=== PATIENT | female | born 1975 | race Caucasian/White ===

== ENCOUNTER 2018-01-07 18:33 | Inpatient (IN) | payer OTHER ==
[2018-01-07 22:24] VITALS: BMI 20.5
--- NOTE | 2018-01-07 23:54 | HP ---
CIWA Score Nausea/Vomitin-Mild Nausea/No Vomiting Muscle Tremors: 4-Moderate,w/Arms Extend Anxiety: 4-Mod. Anxious/Guarded Agitation: 4-Moderately Restless Paroxysmal Sweats: 3 Orientation: 3-Disoriented Date>2 days Tacttile Disturbances: 0-None Auditory Disturbances: 0-None Visual Disturbances: 0-None Headache: 3-Moderate CIWA-Ar Total Score: 22 - Admission Criteria OASAS Guidelines: Admission for Medically Managed Detox: Requires at least one of the followin. CIWA greater than 12 2. Seizures within the past 24 hours 3. Delirium tremens within the past 24 hours 4. Hallucinations within the past 24 hours 5. Acute intervention needed for co occurring medical disorder 6. Acute intervention needed for co occurring psychiatric disorder 7. Severe withdrawal that cannot be handled at a lower level of care (continued vomiting, continued diarrhea, abnormal vital signs) requiring intravenous medication and/or fluids 8. Patient presents the following: CIWA greater than 12 Admission Criteria Met: Admission criteria met Admission ROS [facility] Chief Complaint: c/o withdrawal sx's. seeking detox from alcoholism History of Present Illness: 43 Y.O FEMLAE WITH ALCOHOLISM AND OPIOID DEPENDENCE HERE FOR DETOX. CLIENT C/O WITHDRAWAL SX'S CIWA 22. SHE IS CURRENLTY ON METHADONE MAINTENANCE 100 MG AT [facility]. PENDING VERIFICATION. SHE WAS REFERRED BY [facility]. DENIES ANY SIGNIFICANT CLEAN TIME IN THE PAST YEAR. REPORTS HX/O WITHDRAwAl SX'S. LAST EPISODE 2 MONTHS AGO, [place], [facility] BUT PRESENTLY DENIES. DENIES SI/HI. LIVING WITH FAMILY. OPEN ACS CASE PMHX- SEIZURE D/O ,KIDNEY STONE, CIRRHOSIS, BULEMIA, ANOREXIA PSYCH- BIPOLAR, DEPRESSION, ANXIETY Exam Limitations: Intoxication (REPEAT SUYAPA .0269 FROM .411) - Ebola screening Have you traveled outside of the country in the last 21 days: No (N) Have you had contact with anyone from an Ebola affected area: No Do you have a fever: No - Review of Systems Constitutional: Chills, Loss of Appetite, Night Sweats EENT: reports: No Symptoms Reported Respiratory: reports: No Symptoms reported Cardiac: reports: No Symptoms Reported GI: reports: Constipated, Poor Appetite, Poor Fluid Intake : reports: No Symptoms Reported Musculoskeletal: reports: Back Pain, Joint Pain, Neck Pain Integumentary: reports: No Symptoms Reported Neuro: reports: Seizure Endocrine: reports: No Symptoms Reported Hematology: reports: No Symptoms Reported Psychiatric: reports: Agitated, Anxious, Depressed Other Systems: Reviewed and Negative Patient History - Patient Medical History Hx Anemia: No Hx Asthma: No Hx Chronic Obstructive Pulmonary Disease (COPD): No Hx Cancer: No Hx Cardiac Disorders: No Hx Congestive Heart Failure: No Hx Hypertension: No Hx Hypercholesterolemia: No Hx Pacemaker: No HX Cerebrovascular Accident: No Hx Seizures: Yes (WITHDRAWAL) Hx Dementia: No Hx Diabetes: No Hx Gastrointestinal Disorders: No Hx Liver Disease: Yes (CIRRHOSIS) Hx Genitourinary Disorders: No Hx Sexually Transmitted Disorders: No Hx Renal Disease (ESRD): Yes (RENAL CALCULI) Hx Thyroid Disease: No Hx Human Immunodeficiency Virus (HIV): No Hx Hepatitis C: No Hx Depression: Yes Hx Suicide Attempt: No Hx Bipolar Disorder: Yes Hx Schizophrenia: No Other Medical History: ANXIETY - Patient Surgical History Past Surgical History: Yes Other Surgical History: kIDNEY STONES REMOVAL Anesthesia Reaction: Yes - PPD History Previous Implant?: Yes Documented Results: Negative w/o proof Implanted On Prior [facility] Admission?: No PPD to be Administered?: Yes - Reproductive History Patient is a Female of Child Bearing Age (11 -55 yrs old): Yes Last Menstrual Period: 12/23/17 LMP comment: NL Patient : No ([facility]) - Smoking Cessation Smoking history: Current every day smoker Have you smoked in the past 12 months: Yes Aproximately how many cigarettes per day: 5 Cigars Per Day: 0 Hx Chewing Tobacco Use: No Initiated information on smoking cessation: Yes 'Breaking Loose' booklet given: 01/07/18 - Substance & Tx. History Hx Alcohol Use: Yes Hx Substance Use: Yes Substance Use Type: Alcohol, Prescribed (MTD) Hx Substance Use Treatment: Yes ([facility]) - Substances Abused Alcohol Route: Oral Frequency: Daily Amount used: 1/2 gall. Vodka Age of first use: 40 Date of Last Use: 01/06/18 Family Disease History - Family Disease History Family History: Denies Admission Physical Exam [facility] - Vital Signs Vital Signs: Vital Signs - 24 hr 01/07/18 22:21 Temperature 99.4 F Pulse Rate 101 H Respiratory 20 Rate Blood Pressure 116/81 - Physical General Appearance: Yes: Appropriately Dressed, Mild Distress, Alcohol on Breath , Intoxicated, Tremorous, Irritable, Sweating, Anxious HEENTM: Yes: EOMI, Normocephalic, Normal Voice, ROGERIO, Pharynx Normal, Other ( POOR DENTITION) Respiratory: Yes: Chest Non-Tender, Lungs Clear, Normal Breath Sounds, No Respiratory Distress, No Accessory Muscle Use Neck: Yes: No masses,lesions,Nodules, Supple, Trachea in good position Breast: Yes: Breast Exam Deferred Cardiology: Yes: Regular Rhythm, Regular Rate, S1, S2 Abdominal: Yes: Normal Bowel Sounds, Non Tender, Flat, Soft Genitourinary: Yes: Within Normal Limits (NO C/O) Back: Yes: Normal Inspection Musculoskeletal: Yes: full range of Motion, Gait Steady Extremities: Yes: Normal Capillary Refill, Normal Range of Motion, Non-Tender, Tremors Neurological: Yes: Alert, Motor Strength 5/5, Depressed Affect Integumentary: Yes: Warm, Moist Lymphatic: Yes: Within Normal Limits - Diagnostic (1) Alcohol dependence with uncomplicated withdrawal Current Visit: Yes Status: Acute (2) Alcohol withdrawal seizure Current Visit: Yes Status: Chronic Qualifiers: Complication of substance-induced condition: with unspecified complication Qualified Code(s): F10.239 - Alcohol dependence with withdrawal, unspecified; R56.9 - Unspecified convulsions (3) Renal calculi Current Visit: Yes Status: Chronic (4) Constipation Current Visit: Yes Status: Acute Qualifiers: Constipation type: drug induced constipation Qualified Code(s): K59.03 - Drug induced constipation (5) Methadone maintenance therapy patient Current Visit: Yes Status: Chronic (6) Bipolar 1 disorder Current Visit: Yes Status: Suspected (7) Depression Current Visit: Yes Status: Suspected (8) Anxiety Current Visit: Yes Status: Suspected (9) At risk for dehydration due to poor fluid intake Current Visit: Yes Status: Acute Cleared for Admission S - Detox or Rehab [facility] Level of Care: Medically Managed Detox Regimen/Protocol: Librium Claeared for Rehab Admission: No [facility] Breath Alcohol Content Breath Alcohol Content: 0.411 Urine Pregancy Test - Result Urine Test Results: Negative- NO Line Present Urine Drug Screen - Results Drug Screen Negative: No Urine Drug Screen Results: BZO-Benzodiazepines, MTD-Methadone
[2018-01-08] MEDS ORDERED: guaiFENesin/D-METHORPHAN HB 10 ML UNIT-DOSE CUPS PO PRN (00:06)
[2018-01-08] MEDS ORDERED: MAGNESIUM HYDROX 2400MG/30ML ORAL SUSPENSION 30 ML CUP PO PRN (00:06)
[2018-01-08] MEDS ORDERED: ACETAMINOPHEN 325 MG TABLET (FP) PO PRN (00:06)
[2018-01-08] MEDS ORDERED: MAGNESIUM CITRATE 300 ML BOTTLE PO PRN (00:06)
[2018-01-08] MEDS ORDERED: IBUPROFEN 400 MG TABLET (FP) PO PRN (00:06)
[2018-01-08] MEDS ORDERED: LOPERAMIDE HCL 2 MG CAPSULE PO PRN (00:06)
[2018-01-08] MEDS ORDERED: P-EPHED 60MG/TRIPROLIDI 2.5MG TABLET PO PRN (00:06)
[2018-01-08] MEDS ORDERED: MAG HYDROX/AL HYDROX/SIMETH 30 ML UNIT-DOSE CUP PO PRN (00:06)
[2018-01-08] MEDS ORDERED: MENTHOL/PHENOL 1 EACH UD MM PRN (00:06)
[2018-01-08] MEDS: chlordiazePOXIDE HCL 25 MG CAPSULE PO PRN ×2 (00:47→13:41)
[2018-01-08] MEDS ORDERED: hydrOXYzine PAMOATE 50 MG CAPSULE (FP) PO ONE (02:44)
[2018-01-08] MEDS: chlordiazePOXIDE HCL 25 MG CAPSULE PO SCH ×4 (05:27→22:32)
[2018-01-08] MEDS ORDERED: METHADONE HCL 10 MG TABLET PO SCH (09:30)
[2018-01-08] MEDS: PRENATAL VITAMINS W/ FOLIC ACID TABLET (FP) PO SCH (10:29)
[2018-01-08] MEDS ORDERED: METHADONE HCL 40 MG DISPERSABLE TABLET ONE (10:30)
[2018-01-08] MEDS ORDERED: METHADONE HCL 10 MG TABLET ONE (10:30)
[2018-01-08] MEDS: METHADONE 80 MG, METHADONE 20 MG PO SCH (10:31)
[2018-01-08] MEDS: NICOTINE POLACRILEX 2 MG GUM BC PRN ×2 (10:32→18:11)
[2018-01-08] MEDS: NICOTINE 14 MG/24 HOURS TOPICAL PATCH TD SCH (10:32)
[2018-01-08 10:53] LABS: HEMATOCRIT 38.9 % (32.4-45.2); HEMOGLOBIN 12.6 GM/dL (10.7-15.3); MCH 32.9 pg (25.7-33.7); MCHC 32.3 g/dl (32.0-36.0); MEAN CELL VOLUME 101.7 fl (80-96); PLATELET COUNT 167 K/MM3 (134-434); RBC 3.82 M/mm3 (3.60-5.2); RDW 13.9 % (11.6-15.6); WHITE BLOOD COUNT 4.1 K/mm3 (4.0-10.0)
[2018-01-08 11:03] LABS: ALBUMIN 3.6 g/dl (3.4-5.0); ALK PHOS 86 U/L (45-117); ANION GAP 9 MMOL/L (8-16); BILIRUBIN,TOTAL 1.2 mg/dL (0.2-1); BLOOD UREA NITROGEN 12 mg/dL (7-18); CALCIUM 8.6 mg/dL (8.5-10.1); CHLORIDE 100 mmol/L (98-107); CO2 26 mmol/L (21-32); CREATININE 0.5 mg/dL (0.55-1.3); GLUCOSE,RANDOM 90 mg/dL (74-106); POTASSIUM 3.6 mmol/L (3.5-5.1); SGOT/AST 35 U/L (15-37); SGPT/ALT 16 U/L (13-61); SODIUM 135 mmol/L (136-145); TOT PROT 6.7 g/dl (6.4-8.2)
[2018-01-08] MEDS ORDERED: PNEUMOC 13-VAL CONJ-DIP CRM/PF 0.5 ML DISP.SYRIN IM ONE (12:00)
[2018-01-08] MEDS ORDERED: PNEUMOCOCCAL 23 VACCINE 0.5 ML VIAL IM ONE (12:15)
--- NOTE | 2018-01-08 13:42 | PN ---
S CIWA - CIWA Score Nausea/Vomitin Muscle Tremors: 2 Anxiety: 2 Agitation: 2 Paroxysmal Sweats: 2 Orientation: 0-Oriented Tacttile Disturbances: 1-Very Mild Itch/Numbness Auditory Disturbances: 1-Very Mild Visual Disturbances: 1-Very Mild Sensitivity Headache: 2-Mild CIWA-Ar Total Score: 15 BHS Progress Note (SOAP) Subjective: Tremors, sweats, interrupted sleep Objective: 01/08/18 13:41 Vital Signs Period Temp Pulse Resp BP Sys/Askew Pulse Ox Last 24 Hr 98.2 F-99.4 F 66-121 0-20 91-122/56-85 Laboratory Last Values WBC 4.1 K/mm3 (4.0-10.0) 01/08/18 08:00 RBC 3.82 M/mm3 (3.60-5.2) 01/08/18 08:00 Hgb 12.6 GM/dL (10.7-15.3) 01/08/18 08:00 Hct 38.9 % (32.4-45.2) 01/08/18 08:00 MCV 101.7 fl (80-96) H 01/08/18 08:00 MCH 32.9 pg (25.7-33.7) 01/08/18 08:00 MCHC 32.3 g/dl (32.0-36.0) 01/08/18 08:00 RDW 13.9 % (11.6-15.6) 01/08/18 08:00 Plt Count 167 K/MM3 (134-434) 01/08/18 08:00 MPV 9.0 fl (7.5-11.1) 01/08/18 08:00 Sodium 135 mmol/L (136-145) L 01/08/18 08:00 Potassium 3.6 mmol/L (3.5-5.1) 01/08/18 08:00 Chloride 100 mmol/L (98-107) 01/08/18 08:00 Carbon Dioxide 26 mmol/L (21-32) 01/08/18 08:00 Anion Gap 9 MMOL/L (8-16) 01/08/18 08:00 BUN 12 mg/dL (7-18) 01/08/18 08:00 Creatinine 0.5 mg/dL (0.55-1.3) L 01/08/18 08:00 Creat Clearance w eGFR > 60 (>60) 01/08/18 08:00 Random Glucose 90 mg/dL (74-106) 01/08/18 08:00 Calcium 8.6 mg/dL (8.5-10.1) 01/08/18 08:00 Total Bilirubin 1.2 mg/dL (0.2-1) H 01/08/18 08:00 AST 35 U/L (15-37) 01/08/18 08:00 ALT 16 U/L (13-61) 01/08/18 08:00 Alkaline Phosphatase 86 U/L (45-117) 01/08/18 08:00 Total Protein 6.7 g/dl (6.4-8.2) 01/08/18 08:00 Albumin 3.6 g/dl (3.4-5.0) 01/08/18 08:00 RPR Titer Nonreactive (NONREACTIVE) 01/08/18 08:00 Labs noted Assessment: 01/08/18 13:42 Withdrawal sx Plan: Continue detox
--- NOTE | 2018-01-08 15:21 | EKG ---
Test Reason : Blood Pressure : / mmHG Vent. Rate : 118 BPM Atrial Rate : 118 BPM P-R Int : 148 ms QRS Dur : 072 ms QT Int : 328 ms P-R-T Axes : 069 058 063 degrees QTc Int : 459 ms POOR DATA QUALITY, INTERPRETATION MAY BE ADVERSELY AFFECTED SINUS TACHYCARDIA POSSIBLE LEFT ATRIAL ENLARGEMENT NO PREVIOUS ECGS AVAILABLE Confirmed by Dean Tracey ([id number]) on 01/08/2018 3:20:54 PM Referred By: Confirmed By:Dean Tracey
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
[2018-01-08] MEDS ORDERED: traZODone HCL 150 MG TABLET PO SCH (22:00)
[2018-01-08] MEDS ORDERED: MELATONIN 5 MG TABLETS PO PRN (22:00)
[2018-01-08] MEDS: traZODone HCL 100 MG TABLET (FP) PO SCH (22:32)
[2018-01-08] MEDS: THIAMINE HCL 100 MG TABLET (FP) PO SCH (22:32)
[2018-01-09] MEDS ORDERED: METHADONE HCL 40 MG DISPERSABLE TABLET ONE (04:15)
[2018-01-09] MEDS ORDERED: METHADONE HCL 10 MG TABLET ONE (04:16)
[2018-01-09] MEDS: METHADONE 80 MG, METHADONE 20 MG PO SCH (05:52)
[2018-01-09] MEDS: chlordiazePOXIDE HCL 25 MG CAPSULE PO SCH ×4 (05:52→22:31)
[2018-01-09] MEDS ORDERED: FLUoxetine HCL 10 MG CAPSULE (FP) PO SCH (10:00)
[2018-01-09] MEDS: PRENATAL VITAMINS W/ FOLIC ACID TABLET (FP) PO SCH (11:05)
[2018-01-09] MEDS: ESCITALOPRAM OXALATE 10 MG TABLET (FP) PO SCH (11:05)
[2018-01-09] MEDS: NICOTINE 14 MG/24 HOURS TOPICAL PATCH TD SCH (11:05)
[2018-01-09] MEDS: NICOTINE POLACRILEX 2 MG GUM BC PRN (11:06)
--- NOTE | 2018-01-09 12:25 | PN ---
[facility] CIWA - CIWA Score Nausea/Vomitin-Mild Nausea/No Vomiting Muscle Tremors: 3 Anxiety: 1-Mildly Anxious Agitation: 2 Paroxysmal Sweats: 1-Minimal Palms Moist Orientation: 0-Oriented Tacttile Disturbances: 1-Very Mild Itch/Numbness Auditory Disturbances: 1-Very Mild Visual Disturbances: 0-None Headache: 1-Very Mild CIWA-Ar Total Score: 11 S Progress Note (SOAP) Subjective: sweat tremor restlessness trouble sleep at night Objective: 01/09/18 12:32 Vital Signs Temperature 97.5 F L 01/09/18 10:22 Pulse Rate 73 01/09/18 10:22 Respiratory Rate 16 01/09/18 10:22 Blood Pressure 95/67 01/09/18 10:22 O2 Sat by Pulse Oximetry (%) Laboratory Last Values WBC 4.1 K/mm3 (4.0-10.0) 01/08/18 08:00 RBC 3.82 M/mm3 (3.60-5.2) 01/08/18 08:00 Hgb 12.6 GM/dL (10.7-15.3) 01/08/18 08:00 Hct 38.9 % (32.4-45.2) 01/08/18 08:00 MCV 101.7 fl (80-96) H 01/08/18 08:00 MCH 32.9 pg (25.7-33.7) 01/08/18 08:00 MCHC 32.3 g/dl (32.0-36.0) 01/08/18 08:00 RDW 13.9 % (11.6-15.6) 01/08/18 08:00 Plt Count 167 K/MM3 (134-434) 01/08/18 08:00 MPV 9.0 fl (7.5-11.1) 01/08/18 08:00 Sodium 135 mmol/L (136-145) L 01/08/18 08:00 Potassium 3.6 mmol/L (3.5-5.1) 01/08/18 08:00 Chloride 100 mmol/L (98-107) 01/08/18 08:00 Carbon Dioxide 26 mmol/L (21-32) 01/08/18 08:00 Anion Gap 9 MMOL/L (8-16) 01/08/18 08:00 BUN 12 mg/dL (7-18) 01/08/18 08:00 Creatinine 0.5 mg/dL (0.55-1.3) L 01/08/18 08:00 Creat Clearance w eGFR > 60 (>60) 01/08/18 08:00 Random Glucose 90 mg/dL (74-106) 01/08/18 08:00 Calcium 8.6 mg/dL (8.5-10.1) 01/08/18 08:00 Total Bilirubin 1.2 mg/dL (0.2-1) H 01/08/18 08:00 AST 35 U/L (15-37) 01/08/18 08:00 ALT 16 U/L (13-61) 01/08/18 08:00 Alkaline Phosphatase 86 U/L (45-117) 01/08/18 08:00 Total Protein 6.7 g/dl (6.4-8.2) 01/08/18 08:00 Albumin 3.6 g/dl (3.4-5.0) 01/08/18 08:00 RPR Titer Nonreactive (NONREACTIVE) 01/08/18 08:00 lab noted Assessment: 01/09/18 12:33 withdrawal sx Plan: continue detox
[2018-01-09] MEDS: THIAMINE HCL 100 MG TABLET (FP) PO SCH (22:30)
[2018-01-09] MEDS: traZODone HCL 100 MG TABLET (FP) PO SCH (22:31)
[2018-01-10] MEDS ORDERED: METHADONE HCL 10 MG TABLET ONE (04:55)
[2018-01-10] MEDS ORDERED: METHADONE HCL 40 MG DISPERSABLE TABLET ONE (04:55)
[2018-01-10] MEDS: chlordiazePOXIDE 5 MG CAPSULE PO SCH ×4 (06:10→22:22)
[2018-01-10] MEDS: METHADONE 80 MG, METHADONE 20 MG PO SCH (06:10)
--- NOTE | 2018-01-10 10:30 | PN ---
[facility] Progress Note (SOAP) Subjective: sweats chills mild shakes Objective: 01/10/18 10:35 Vital Signs Temperature 96.7 F L 01/10/18 09:31 Pulse Rate 72 01/10/18 09:31 Respiratory Rate 16 01/10/18 09:31 Blood Pressure 102/73 01/10/18 09:31 O2 Sat by Pulse Oximetry (%) aaox3 ambulating no acute distress Assessment: 01/10/18 10:35 mild withdrawal sx Plan: continue detox increase fluids d/c in am
[2018-01-10] MEDS: ESCITALOPRAM OXALATE 10 MG TABLET (FP) PO SCH (10:38)
[2018-01-10] MEDS: PRENATAL VITAMINS W/ FOLIC ACID TABLET (FP) PO SCH (10:38)
[2018-01-10] MEDS: NICOTINE 14 MG/24 HOURS TOPICAL PATCH TD SCH (10:38)
[2018-01-10 15:51] LABS: URINE APPEARANCE CLOUDY; URINE BILIRUBIN NEGATIVE (<2.0 mg/dL); URINE COLOR DKYELLOW; URINE GLUCOSE (UA) NEGATIVE (NEGATIVE); URINE KETONE NEGATIVE (NEGATIVE); URINE LEUK ESTERASE 2+ (NEGATIVE); URINE NITRITE POSITIVE (NEGATIVE); URINE PROTEIN NEGATIVE (NEGATIVE)
[2018-01-10 16:57] LABS: EPI CELLS MANY /HPF (FEW); URINE MUCUS RARE
[2018-01-10] MEDS: traZODone HCL 100 MG TABLET (FP) PO SCH (22:22)
[2018-01-10] MEDS: THIAMINE HCL 100 MG TABLET (FP) PO SCH (22:22)
[2018-01-11] MEDS ORDERED: METHADONE HCL 40 MG DISPERSABLE TABLET ONE (04:49)
[2018-01-11] MEDS ORDERED: METHADONE HCL 10 MG TABLET ONE (04:49)
[2018-01-11] MEDS ORDERED: chlordiazePOXIDE HCL 10 MG CAPSULE PO SCH (05:00)
[2018-01-11] MEDS: METHADONE 80 MG, METHADONE 20 MG PO SCH (05:56)
--- NOTE | 2018-01-11 08:47 | DS ---
[facility] Detox Discharge Summary Admission Date: 01/07/18 Discharge Date: 01/11/18 - History Present History: Alcohol Dependence, MMTP - Physical Exam Results Vital Signs: Vital Signs Temperature 97.9 F 01/11/18 07:32 Pulse Rate 73 01/11/18 07:32 Respiratory Rate 18 01/11/18 07:32 Blood Pressure 100/66 01/11/18 07:32 O2 Sat by Pulse Oximetry (%) - Treatment Hospital Course: Detox Protocol Followed, Detoxed Safely, Responded well, Discharged Condition Good, Rehab Referral Accepted - Medication Discharge Medications: Ambulatory Orders Fluoxetine HCl [Prozac] 10 mg PO DAILY 01/08/18 Trazodone HCl 150 mg PO HS 01/08/18 - Diagnosis (1) Alcohol dependence with uncomplicated withdrawal Current Visit: Yes Status: Chronic (2) At risk for dehydration due to poor fluid intake Current Visit: Yes Status: Acute (3) Constipation Current Visit: Yes Status: Acute Qualifiers: Constipation type: drug induced constipation Qualified Code(s): K59.03 - Drug induced constipation (4) Insomnia Current Visit: Yes Status: Acute (5) Nicotine dependence Current Visit: Yes Status: Acute Qualifiers: Nicotine product type: cigarettes Substance use status: uncomplicated Qualified Code(s): F17.210 - Nicotine dependence, cigarettes, uncomplicated (6) Opioid dependence on agonist therapy Current Visit: Yes Status: Acute (7) Substance induced mood disorder Current Visit: Yes Status: Acute (8) Alcohol withdrawal seizure Current Visit: Yes Status: Chronic Qualifiers: Complication of substance-induced condition: with unspecified complication Qualified Code(s): F10.239 - Alcohol dependence with withdrawal, unspecified; R56.9 - Unspecified convulsions (9) Methadone maintenance therapy patient Current Visit: Yes Status: Chronic (10) Renal calculi Current Visit: Yes Status: Chronic (11) Anxiety Current Visit: Yes Status: Suspected (12) Bipolar 1 disorder Current Visit: Yes Status: Suspected (13) Depression Current Visit: Yes Status: Suspected Qualifiers: Depression Type: major depressive disorder - AMA Did Patient Leave Against Medical Advice: No ([facility]
[2018-01-11] MEDS: NICOTINE POLACRILEX 2 MG GUM BC PRN (09:37)
[2018-01-11] MEDS: PRENATAL VITAMINS W/ FOLIC ACID TABLET (FP) PO SCH (09:37)
[2018-01-11] MEDS: NICOTINE 14 MG/24 HOURS TOPICAL PATCH TD SCH (09:37)
[2018-01-11] MEDS: ESCITALOPRAM OXALATE 10 MG TABLET (FP) PO SCH (09:37)
[2018-01-11 09:47] VITALS: BP 102/73; PULSE 111; TEMP 97.3
== END 2018-01-11 10:06 | disposition other institution (70) | DRG 773 ==
LOC: YASAS 18:33 → Y6N 21:09
PROC: HZ2ZZZZ Detoxification Services for Substance Abuse Treatment (ICD-10-PCS; principal; 2018-01-07)
DX: F10.230 Alcohol dependence with withdrawal, uncomplicated (principal); F11.20 Opioid dependence, uncomplicated; F17.210 Nicotine dependence, cigarettes, uncomplicated; F19.24 Other psychoactive substance dependence with psychoactive substance-induced mood disorder; F41.9 Anxiety disorder, unspecified; F31.89 Other bipolar disorder; G47.00 Insomnia, unspecified; G40.509 Epileptic seizures related to external causes, not intractable, without status epilepticus; K59.03 Drug induced constipation; N20.0 Calculus of kidney; K74.60 Unspecified cirrhosis of liver; Z91.89 Other specified personal risk factors, not elsewhere classified
CPT/HCPCS: 36415; 80053; 81003; 81015; 85027; 86593; 90732; 93005; 93010; G0009

== ENCOUNTER 2018-01-11 10:59 | Inpatient (IN) | payer OTHER ==
[2018-01-11 11:56] VITALS: BMI 21.5
[2018-01-11] MEDS ORDERED: MENTHOL/PHENOL 1 EACH UD MM PRN (13:53)
[2018-01-11] MEDS ORDERED: P-EPHED 60MG/TRIPROLIDI 2.5MG TABLET PO PRN (13:53)
[2018-01-11] MEDS ORDERED: MAGNESIUM HYDROX 2400MG/30ML ORAL SUSPENSION 30 ML CUP PO PRN (13:53)
[2018-01-11] MEDS ORDERED: ACETAMINOPHEN 325 MG TABLET (FP) PO PRN (13:53)
[2018-01-11] MEDS ORDERED: guaiFENesin/D-METHORPHAN HB 10 ML UNIT-DOSE CUPS PO PRN (13:53)
[2018-01-11] MEDS ORDERED: MAGNESIUM CITRATE 300 ML BOTTLE PO PRN (13:53)
[2018-01-11] MEDS ORDERED: LOPERAMIDE HCL 2 MG CAPSULE PO PRN (13:53)
[2018-01-11] MEDS ORDERED: IBUPROFEN 400 MG TABLET (FP) PO PRN (13:53)
--- NOTE | 2018-01-11 13:53 | HP ---
[facility] Rehab Assess/Revision - Admission History Admitted to Rehab from: [facility] [address] [place] - Vital signs Vital Signs: Vital Signs Period Temp Pulse Resp BP Sys/Askew Pulse Ox Last 24 Hr 97.7 F-97.7 F 92-92 16-16 114-114/80-80 - Findings Detox History & Physical reviewed: Yes Concur with findings: Yes Inpatient Rehab Admission - Initial Determination Are CD services needed?: Yes Free of communicable disease: Yes Not in need of hospitalization: Yes - Rehab Admission Criteria Previous failed treatment: Yes Poor recovery environment: Yes Lacks judgement: Yes
--- NOTE | 2018-01-11 15:28 | PN ---
[facility] Progress Note Note: Psychiatry Attending's note (coverage) : Patient is now at [address] Nurse called for medications orders. Case already known to communications writer. Medications reconciled as : lexapro 10 mg po daily Trazodone 150 mg po hs. Ordered. Continuity of care.
[2018-01-11] MEDS: hydrOXYzine PAMOATE 50 MG CAPSULE (FP) PO PRN (19:31)
[2018-01-11] MEDS: THIAMINE HCL 100 MG TABLET (FP) PO SCH (21:49)
[2018-01-11] MEDS: cloNIDine HCL 0.1 MG TABLET PO PRN (21:49)
[2018-01-11] MEDS: traZODone HCL 50 MG TABLET (FP) PO SCH (21:50)
[2018-01-11] MEDS ORDERED: MELATONIN 5 MG TABLETS PO PRN (22:00)
[2018-01-12] MEDS ORDERED: METHADONE HCL 10 MG TABLET PO SCH (06:00)
[2018-01-12] MEDS ORDERED: METHADONE HCL 10 MG TABLET ONE (06:24)
[2018-01-12] MEDS ORDERED: METHADONE HCL 40 MG DISPERSABLE TABLET ONE (06:25)
[2018-01-12] MEDS: METHADONE 80 MG, METHADONE 20 MG PO SCH (06:33)
[2018-01-12] MEDS: PRENATAL VITAMINS W/ FOLIC ACID TABLET (FP) PO SCH (09:32)
[2018-01-12] MEDS: ESCITALOPRAM OXALATE 10 MG TABLET (FP) PO SCH (09:32)
[2018-01-12] MEDS: hydrOXYzine PAMOATE 50 MG CAPSULE (FP) PO PRN ×2 (09:33→21:55)
[2018-01-12] MEDS: THIAMINE HCL 100 MG TABLET (FP) PO SCH (21:55)
[2018-01-12] MEDS: traZODone HCL 50 MG TABLET (FP) PO SCH (21:55)
[2018-01-13] MEDS ORDERED: METHADONE HCL 10 MG TABLET ONE (06:00)
[2018-01-13] MEDS ORDERED: METHADONE HCL 40 MG DISPERSABLE TABLET ONE (06:01)
[2018-01-13] MEDS: METHADONE 80 MG, METHADONE 20 MG PO SCH (06:34)
[2018-01-13] MEDS: hydrOXYzine PAMOATE 50 MG CAPSULE (FP) PO PRN ×3 (06:34→21:41)
[2018-01-13] MEDS: MAG HYDROX/AL HYDROX/SIMETH 30 ML UNIT-DOSE CUP PO PRN (07:46)
[2018-01-13] MEDS: ESCITALOPRAM OXALATE 10 MG TABLET (FP) PO SCH (10:53)
[2018-01-13] MEDS: PRENATAL VITAMINS W/ FOLIC ACID TABLET (FP) PO SCH (10:53)
[2018-01-13] MEDS: traZODone HCL 50 MG TABLET (FP) PO SCH (21:41)
[2018-01-13] MEDS: THIAMINE HCL 100 MG TABLET (FP) PO SCH (21:41)
[2018-01-14] MEDS ORDERED: METHADONE HCL 40 MG DISPERSABLE TABLET ONE (03:31)
[2018-01-14] MEDS ORDERED: METHADONE HCL 10 MG TABLET ONE (03:31)
[2018-01-14] MEDS: METHADONE 80 MG, METHADONE 20 MG PO SCH (06:29)
[2018-01-14] MEDS: hydrOXYzine PAMOATE 50 MG CAPSULE (FP) PO PRN ×2 (06:31→21:39)
[2018-01-14] MEDS: ESCITALOPRAM OXALATE 10 MG TABLET (FP) PO SCH (10:05)
[2018-01-14] MEDS: PRENATAL VITAMINS W/ FOLIC ACID TABLET (FP) PO SCH (10:05)
[2018-01-14] MEDS: MAG HYDROX/AL HYDROX/SIMETH 30 ML UNIT-DOSE CUP PO PRN (10:05)
--- NOTE | 2018-01-14 16:09 | PN ---
[facility] Progress Note (SOAP) Subjective: c/o heart burn. States has had acid reflux in the past. States regular BM's w/o blood. Also c/o chronic back pain and requesting a lidocaine patch. pain is achy and goes from 5-10 depending on activities. Objective: A&O x 3. Lungs CTA. Able to bend at waist past 90 degrees. No abnormal protrusions felt on spinal area. Abd w/ Mid and LUQ tenderness deep paplation. No guarding/ No rebound tenderness. Soft, BS(+). Vital Signs - 24 hr 01/14/18 01/14/18 01/14/18 00:30 03:30 07:38 Temperature 98.2 F Pulse Rate 86 Respiratory 16 16 16 Rate Blood Pressure 91/65 Assessment: Alcohol remission. Methadone maintenance. Chronic low back pain Acid reflux Plan: Protonix Lidocaine patch. Encourage increased water/tea.
[2018-01-14] MEDS: PANTOPRAZOLE 20 MG TABLET (FP) PO SCH (17:23)
[2018-01-14] MEDS: LIDOCAINE 5% TOPICAL PATCH TP SCH (17:23)
[2018-01-14] MEDS: traZODone HCL 50 MG TABLET (FP) PO SCH (21:37)
[2018-01-14] MEDS: THIAMINE HCL 100 MG TABLET (FP) PO SCH (21:38)
[2018-01-14] MEDS: LIDOCAINE PATCH REMOVAL MC SCH (21:38)
[2018-01-15] MEDS ORDERED: METHADONE HCL 10 MG TABLET ONE (05:57)
[2018-01-15] MEDS ORDERED: METHADONE HCL 40 MG DISPERSABLE TABLET ONE (05:57)
[2018-01-15] MEDS: METHADONE 80 MG, METHADONE 20 MG PO SCH (06:24)
[2018-01-15] MEDS: hydrOXYzine PAMOATE 50 MG CAPSULE (FP) PO PRN ×3 (06:26→21:39)
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
[2018-01-15] MEDS: PRENATAL VITAMINS W/ FOLIC ACID TABLET (FP) PO SCH (10:40)
[2018-01-15] MEDS: LIDOCAINE 5% TOPICAL PATCH TP SCH (10:40)
[2018-01-15] MEDS: PANTOPRAZOLE 20 MG TABLET (FP) PO SCH (10:41)
[2018-01-15] MEDS: ESCITALOPRAM OXALATE 10 MG TABLET (FP) PO SCH (10:41)
[2018-01-15] MEDS: traZODone HCL 50 MG TABLET (FP) PO SCH (21:39)
[2018-01-15] MEDS: LIDOCAINE PATCH REMOVAL MC SCH (21:40)
[2018-01-15] MEDS: THIAMINE HCL 100 MG TABLET (FP) PO SCH (21:41)
[2018-01-16] MEDS ORDERED: METHADONE HCL 10 MG TABLET ONE (05:52)
[2018-01-16] MEDS ORDERED: METHADONE HCL 40 MG DISPERSABLE TABLET ONE (05:52)
[2018-01-16] MEDS: METHADONE 80 MG, METHADONE 20 MG PO SCH (06:34)
[2018-01-16] MEDS: hydrOXYzine PAMOATE 50 MG CAPSULE (FP) PO PRN ×3 (06:34→21:36)
[2018-01-16] MEDS: LIDOCAINE 5% TOPICAL PATCH TP SCH (10:27)
[2018-01-16] MEDS: PRENATAL VITAMINS W/ FOLIC ACID TABLET (FP) PO SCH (10:30)
[2018-01-16] MEDS: PANTOPRAZOLE 20 MG TABLET (FP) PO SCH (10:30)
[2018-01-16] MEDS: cloNIDine HCL 0.1 MG TABLET PO PRN ×2 (10:30→21:40)
[2018-01-16] MEDS: ESCITALOPRAM OXALATE 10 MG TABLET (FP) PO SCH (10:30)
[2018-01-16] MEDS: THIAMINE HCL 100 MG TABLET (FP) PO SCH (21:35)
[2018-01-16] MEDS: traZODone HCL 50 MG TABLET (FP) PO SCH (21:36)
[2018-01-16] MEDS: LIDOCAINE PATCH REMOVAL MC SCH (22:30)
[2018-01-17] MEDS ORDERED: METHADONE HCL 10 MG TABLET ONE (03:13)
[2018-01-17] MEDS ORDERED: METHADONE HCL 40 MG DISPERSABLE TABLET ONE (03:14)
[2018-01-17] MEDS: METHADONE 80 MG, METHADONE 20 MG PO SCH (06:17)
[2018-01-17] MEDS: hydrOXYzine PAMOATE 50 MG CAPSULE (FP) PO PRN ×4 (06:18→21:41)
[2018-01-17] MEDS ORDERED: PT OWN MED DRAWER 7, Y5N ONE (09:03)
[2018-01-17] MEDS: ESCITALOPRAM OXALATE 10 MG TABLET (FP) PO SCH (10:43)
[2018-01-17] MEDS: PANTOPRAZOLE 20 MG TABLET (FP) PO SCH (10:43)
[2018-01-17] MEDS: PRENATAL VITAMINS W/ FOLIC ACID TABLET (FP) PO SCH (10:43)
[2018-01-17] MEDS: LIDOCAINE 5% TOPICAL PATCH TP SCH (10:43)
[2018-01-17] MEDS ORDERED: IBUPROFEN 600 MG TABLET (FP) PO PRN (13:40)
[2018-01-17] MEDS: CYCLOBENZAPRINE HCL 10 MG TABLET (FP) PO PRN ×2 (15:49→21:41)
[2018-01-17] MEDS: THIAMINE HCL 100 MG TABLET (FP) PO SCH (21:40)
[2018-01-17] MEDS: cloNIDine HCL 0.1 MG TABLET PO PRN (21:40)
[2018-01-17] MEDS: traZODone HCL 50 MG TABLET (FP) PO SCH (21:41)
[2018-01-17] MEDS: LIDOCAINE PATCH REMOVAL MC SCH (21:42)
[2018-01-18] MEDS ORDERED: METHADONE HCL 10 MG TABLET ONE (03:28)
[2018-01-18] MEDS ORDERED: METHADONE HCL 40 MG DISPERSABLE TABLET ONE (03:28)
[2018-01-18] MEDS: METHADONE 80 MG, METHADONE 20 MG PO SCH (06:43)
[2018-01-18] MEDS: PANTOPRAZOLE 20 MG TABLET (FP) PO SCH (10:54)
[2018-01-18] MEDS: ESCITALOPRAM OXALATE 10 MG TABLET (FP) PO SCH (10:54)
[2018-01-18] MEDS: PRENATAL VITAMINS W/ FOLIC ACID TABLET (FP) PO SCH (10:54)
[2018-01-18] MEDS: LIDOCAINE 5% TOPICAL PATCH TP SCH (10:54)
[2018-01-18] MEDS: hydrOXYzine PAMOATE 50 MG CAPSULE (FP) PO PRN ×3 (10:55→22:29)
[2018-01-18] MEDS: CYCLOBENZAPRINE HCL 10 MG TABLET (FP) PO PRN (10:59)
[2018-01-18] MEDS: CYCLOBENZAPRINE HCL 10 MG TABLET (FP) PO SCH ×2 (14:25→22:29)
[2018-01-18] MEDS: traZODone HCL 50 MG TABLET (FP) PO SCH (22:29)
[2018-01-18] MEDS: THIAMINE HCL 100 MG TABLET (FP) PO SCH (22:29)
[2018-01-18] MEDS: LIDOCAINE PATCH REMOVAL MC SCH (22:29)
[2018-01-19] MEDS ORDERED: METHADONE HCL 10 MG TABLET ONE (05:59)
[2018-01-19] MEDS ORDERED: METHADONE HCL 40 MG DISPERSABLE TABLET ONE (06:00)
[2018-01-19] MEDS: METHADONE 80 MG, METHADONE 20 MG PO SCH (06:35)
[2018-01-19] MEDS: hydrOXYzine PAMOATE 50 MG CAPSULE (FP) PO PRN ×3 (06:37→21:30)
[2018-01-19] MEDS: CYCLOBENZAPRINE HCL 10 MG TABLET (FP) PO SCH ×3 (06:37→21:30)
[2018-01-19] MEDS: LIDOCAINE 5% TOPICAL PATCH TP SCH (10:27)
[2018-01-19] MEDS: PANTOPRAZOLE 20 MG TABLET (FP) PO SCH (10:27)
[2018-01-19] MEDS: ESCITALOPRAM OXALATE 10 MG TABLET (FP) PO SCH (10:27)
[2018-01-19] MEDS: PRENATAL VITAMINS W/ FOLIC ACID TABLET (FP) PO SCH (10:27)
[2018-01-19] MEDS: cloNIDine HCL 0.1 MG TABLET PO PRN ×2 (10:28→21:30)
[2018-01-19] MEDS: THIAMINE HCL 100 MG TABLET (FP) PO SCH (21:30)
[2018-01-19] MEDS: traZODone HCL 50 MG TABLET (FP) PO SCH (21:30)
[2018-01-19] MEDS: LIDOCAINE PATCH REMOVAL MC SCH (21:32)
[2018-01-20] MEDS ORDERED: METHADONE HCL 40 MG DISPERSABLE TABLET ONE (03:47)
[2018-01-20] MEDS ORDERED: METHADONE HCL 10 MG TABLET ONE (03:47)
[2018-01-20] MEDS: METHADONE 80 MG, METHADONE 20 MG PO SCH (06:22)
[2018-01-20] MEDS: hydrOXYzine PAMOATE 50 MG CAPSULE (FP) PO PRN (06:23)
[2018-01-20] MEDS: CYCLOBENZAPRINE HCL 10 MG TABLET (FP) PO SCH ×3 (06:23→21:45)
[2018-01-20] MEDS: LIDOCAINE 5% TOPICAL PATCH TP SCH (09:36)
[2018-01-20] MEDS: cloNIDine HCL 0.1 MG TABLET PO PRN (09:36)
[2018-01-20] MEDS: PRENATAL VITAMINS W/ FOLIC ACID TABLET (FP) PO SCH (09:36)
[2018-01-20] MEDS: PANTOPRAZOLE 20 MG TABLET (FP) PO SCH (09:36)
[2018-01-20] MEDS: ESCITALOPRAM OXALATE 10 MG TABLET (FP) PO SCH (09:36)
[2018-01-20] MEDS: traZODone HCL 50 MG TABLET (FP) PO SCH (21:44)
[2018-01-20] MEDS: THIAMINE HCL 100 MG TABLET (FP) PO SCH (21:44)
[2018-01-20] MEDS: LIDOCAINE PATCH REMOVAL MC SCH (21:45)
[2018-01-21] MEDS ORDERED: METHADONE HCL 40 MG DISPERSABLE TABLET ONE (05:52)
[2018-01-21] MEDS ORDERED: METHADONE HCL 10 MG TABLET ONE (05:52)
[2018-01-21] MEDS: hydrOXYzine PAMOATE 50 MG CAPSULE (FP) PO PRN ×3 (06:05→21:24)
[2018-01-21] MEDS: METHADONE 80 MG, METHADONE 20 MG PO SCH (06:05)
[2018-01-21] MEDS: CYCLOBENZAPRINE HCL 10 MG TABLET (FP) PO SCH ×3 (06:06→21:24)
[2018-01-21] MEDS: PANTOPRAZOLE 20 MG TABLET (FP) PO SCH (10:46)
[2018-01-21] MEDS: ESCITALOPRAM OXALATE 10 MG TABLET (FP) PO SCH (10:46)
[2018-01-21] MEDS: LIDOCAINE 5% TOPICAL PATCH TP SCH (10:46)
[2018-01-21] MEDS: PRENATAL VITAMINS W/ FOLIC ACID TABLET (FP) PO SCH (10:46)
[2018-01-21] MEDS: cloNIDine HCL 0.1 MG TABLET PO PRN (19:33)
[2018-01-21] MEDS: THIAMINE HCL 100 MG TABLET (FP) PO SCH (21:24)
[2018-01-21] MEDS: traZODone HCL 50 MG TABLET (FP) PO SCH (21:24)
[2018-01-21] MEDS: NICOTINE POLACRILEX 2 MG GUM BUC PRN (21:25)
[2018-01-21] MEDS: LIDOCAINE PATCH REMOVAL MC SCH (21:25)
[2018-01-22] MEDS ORDERED: METHADONE HCL 40 MG DISPERSABLE TABLET ONE (03:02)
[2018-01-22] MEDS ORDERED: METHADONE HCL 10 MG TABLET ONE (03:02)
[2018-01-22] MEDS: CYCLOBENZAPRINE HCL 10 MG TABLET (FP) PO SCH ×3 (06:30→21:36)
[2018-01-22] MEDS: METHADONE 80 MG, METHADONE 20 MG PO SCH (06:30)
[2018-01-22] MEDS: cloNIDine HCL 0.1 MG TABLET PO PRN ×2 (07:47→21:38)
[2018-01-22] MEDS: hydrOXYzine PAMOATE 50 MG CAPSULE (FP) PO PRN (10:48)
[2018-01-22] MEDS: ESCITALOPRAM OXALATE 10 MG TABLET (FP) PO SCH (10:48)
[2018-01-22] MEDS: PANTOPRAZOLE 20 MG TABLET (FP) PO SCH (10:48)
[2018-01-22] MEDS: PRENATAL VITAMINS W/ FOLIC ACID TABLET (FP) PO SCH (10:48)
[2018-01-22] MEDS: LIDOCAINE 5% TOPICAL PATCH TP SCH (10:48)
[2018-01-22] MEDS: traZODone HCL 50 MG TABLET (FP) PO SCH (21:36)
[2018-01-22] MEDS: THIAMINE HCL 100 MG TABLET (FP) PO SCH (21:36)
[2018-01-22] MEDS: LIDOCAINE PATCH REMOVAL MC SCH (21:37)
[2018-01-22] MEDS: NICOTINE POLACRILEX 2 MG GUM BUC PRN (21:46)
[2018-01-23] MEDS ORDERED: METHADONE HCL 10 MG TABLET ONE (03:19)
[2018-01-23] MEDS ORDERED: METHADONE HCL 40 MG DISPERSABLE TABLET ONE (03:20)
[2018-01-23] MEDS: METHADONE 80 MG, METHADONE 20 MG PO SCH (06:18)
[2018-01-23] MEDS: hydrOXYzine PAMOATE 50 MG CAPSULE (FP) PO PRN (06:19)
[2018-01-23] MEDS: CYCLOBENZAPRINE HCL 10 MG TABLET (FP) PO SCH ×3 (06:19→21:36)
[2018-01-23] MEDS: NICOTINE POLACRILEX 2 MG GUM BUC PRN ×3 (06:21→12:54)
[2018-01-23] MEDS: PRENATAL VITAMINS W/ FOLIC ACID TABLET (FP) PO SCH (10:05)
[2018-01-23] MEDS: PANTOPRAZOLE 20 MG TABLET (FP) PO SCH (10:05)
[2018-01-23] MEDS: ESCITALOPRAM OXALATE 10 MG TABLET (FP) PO SCH (10:05)
[2018-01-23] MEDS: LIDOCAINE 5% TOPICAL PATCH TP SCH (10:05)
[2018-01-23] MEDS: cloNIDine HCL 0.1 MG TABLET PO PRN ×2 (12:53→21:36)
[2018-01-23] MEDS: traZODone HCL 50 MG TABLET (FP) PO SCH (21:36)
[2018-01-23] MEDS: LIDOCAINE PATCH REMOVAL MC SCH (21:36)
[2018-01-23] MEDS: THIAMINE HCL 100 MG TABLET (FP) PO SCH (21:36)
[2018-01-24] MEDS ORDERED: METHADONE HCL 10 MG TABLET ONE (03:10)
[2018-01-24] MEDS ORDERED: METHADONE HCL 40 MG DISPERSABLE TABLET ONE (03:11)
[2018-01-24] MEDS: CYCLOBENZAPRINE HCL 10 MG TABLET (FP) PO SCH ×3 (06:14→21:56)
[2018-01-24] MEDS: METHADONE 80 MG, METHADONE 20 MG PO SCH (06:14)
[2018-01-24] MEDS: hydrOXYzine PAMOATE 50 MG CAPSULE (FP) PO PRN ×2 (06:16→14:10)
[2018-01-24] MEDS: NICOTINE POLACRILEX 2 MG GUM BUC PRN (06:16)
[2018-01-24] MEDS: ESCITALOPRAM OXALATE 10 MG TABLET (FP) PO SCH (10:19)
[2018-01-24] MEDS: cloNIDine HCL 0.1 MG TABLET PO PRN ×2 (10:19→21:57)
[2018-01-24] MEDS: PANTOPRAZOLE 20 MG TABLET (FP) PO SCH (10:19)
[2018-01-24] MEDS: LIDOCAINE 5% TOPICAL PATCH TP SCH (10:19)
[2018-01-24] MEDS: PRENATAL VITAMINS W/ FOLIC ACID TABLET (FP) PO SCH (10:19)
[2018-01-24] MEDS ORDERED: COLLOIDAL OATMEAL 1 BAR EACH TP PRN (11:46)
--- NOTE | 2018-01-24 13:41 | PN ---
S Progress Note Note: PATIENT C/O DRY SKIN AND ITCHING TO BACK AREA. STATES SHE HAD RASH LAST NIGHT. PE: SKIN WARM AND DRY AND INTACT. MILD RASH TO FACIAL CHEEKS. NO OPEN AREAS. WILL ORDER AVEENO SOAP AND EUCERIN CREAM. CONTINUE TO MONITOR. Vital Signs Temperature 97.8 F 01/24/18 07:18 Pulse Rate 86 01/24/18 09:31 Respiratory Rate 16 01/24/18 07:18 Blood Pressure 107/77 01/24/18 09:31 O2 Sat by Pulse Oximetry (%)
--- NOTE | 2018-01-24 15:38 | PN ---
Psychiatric Progress Note Vital Signs: Vital Signs Period Temp Pulse Resp BP Sys/Askew Pulse Ox Last 24 Hr 97.8 F 84-89 16-16 107-136/77-87 Date of Session: 01/24/18 Chief Complaint:: Discharge oeders HPI: Patient discharge from rehabilitation program, with successful complition on: Trazodone 150mg po qhs. Lexapro 10mg poqd. [id number] PO TID Current Medications: Active Medications Generic Name Dose Route Start Last Admin Trade Name Freq PRN Reason Stop Dose Admin Acetaminophen 650 mg 01/11/18 13:53 01/18/18 10:55 Tylenol - PO 650 mg Q4H PRN Administration FEVER Al Hydroxide/Mg Hydroxide 30 ml 01/11/18 13:53 01/14/18 10:05 Mylanta Oral Suspension - PO 30 ml Q6H PRN Administration DYSPEPSIA Clonidine 0.1 mg 01/11/18 15:54 01/24/18 10:19 Catapres - PO 0.1 mg BID PRN Administration WITHDRAWAL(CONT SUBST) Colloidal Oatmeal 1 applic 01/24/18 11:46 Aveeno Soap - TP DAILY PRN HYGEINE Cyclobenzaprine HCl 10 mg 01/18/18 14:00 01/24/18 14:10 Flexeril - PO 10 mg TID KAYLA Administration Escitalopram Oxalate 10 mg 01/12/18 10:00 01/24/18 10:19 Lexapro - PO 10 mg DAILY KAYLA Administration Eucalyptus/Menthol/Phenol/Sorbitol 1 each 01/11/18 13:53 Cepastat Lozenge - MM Q4H PRN SORE THROAT Guaifenesin 10 ml 01/11/18 13:53 Robitussin Dm - PO Q6H PRN COUGH Hydroxyzine Pamoate 50 mg 01/11/18 13:53 01/24/18 14:10 Vistaril - PO 50 mg Q4H PRN Administration AGITATION Ibuprofen 600 mg 01/17/18 13:40 Motrin - PO Q6H PRN Pain Level 4-6 Lidocaine 1 patch 01/14/18 16:30 01/24/18 10:19 Lidoderm Patch - TP 1 patch DAILY KAYLA Administration Loperamide HCl 4 mg 01/11/18 13:53 Imodium - PO Q6H PRN DIARRHEA Magnesium Citrate 300 ml 01/11/18 13:53 Citroma - PO Q48H PRN CONSTIPATION Magnesium Hydroxide 30 ml 01/11/18 13:53 Milk Of Magnesia - PO DAILY PRN CONSTIPATION Melatonin 5 mg 01/11/18 22:00 01/15/18 21:40 Melatonin PO 5 mg HS PRN Administration INSOMNIA Methadone HCl 80 mg/ Methadone 100 mg 01/19/18 06:00 01/24/18 06:14 HCl 20 mg PO 100 mg DAILY@0600 [facility] Administration Miscellaneous 1 each 01/14/18 22:00 01/23/18 21:36 Lidoderm Patch Removal MC 1 each DAILY@2200 [facility] Administration Multi-Ingredient Lotion 1 applic 01/24/18 22:00 Eucerin (Small Jar) - TP BID KAYLA Nicotine Polacrilex 2 mg 01/19/18 12:19 01/24/18 06:16 Nicorette Gum - BUC 2 mg Q2H PRN Administration NICOTINE REPLACEMENT RX Pantoprazole Sodium 20 mg 01/14/18 16:30 01/24/18 10:19 Protonix - PO 20 mg DAILY KAYLA Administration Multivit/Folic Acid/Iron 1 tab 01/12/18 10:00 01/24/18 10:19 Vitamins (Sjr) - PO 1 tab DAILY KAYLA Administration Pseudoephedrine/Triprolidine 1 combo 01/11/18 13:53 Actifed - PO TID PRN NASAL CONGESTION Thiamine HCl 100 mg 01/11/18 22:00 01/23/18 21:36 Vitamin B1 - PO 100 mg HS KAYLA Administration Trazodone HCl 150 mg 01/11/18 22:00 01/23/18 21:36 Desyrel - PO 150 mg HS KAYLA Administration Medication(s) Change(s): NONE Mental Status Exam - Mental Status Exam Alert and Oriented to: Time, Place, Person Patient Appearance: Well Groomed Mood: Euthymic Affect: Mood Congruent Patient Behavior: Cooperative Speech Pattern: Appropriate Voice Loudness: Normal Thought Process: Goal Oriented Thought Disorder: Being Controlled Hallucinations: Denies Suicidal Ideation: Denies Homicidal Ideation: Denies Insight/Judgement: Fair Sleep: Difficulty falling asleep Appetite: Fair Muscle strength/Tone: Normal Gait/Station: Normal Additional Comments: Trazodone 150mg po qhs. Lexapro 10mg poqd. [id number] PO TID Psychiatric Treatment Plan - Problem List (1) Alcohol dependence Current Visit: Yes (2) Alcohol use disorder, moderate, in early remission Current Visit: Yes (3) Nicotine dependence Current Visit: Yes Qualifiers: Nicotine product type: cigarettes Substance use status: uncomplicated Qualified Code(s): F17.210 - Nicotine dependence, cigarettes, uncomplicated (4) Opioid dependence on agonist therapy Current Visit: Yes (5) Substance induced mood disorder Current Visit: Yes (6) Acid reflux Current Visit: Yes Qualifiers: Esophagitis presence: esophagitis presence not specified Qualified Code(s) : K21.9 - Gastro-esophageal reflux disease without esophagitis (7) Alcohol dependence with uncomplicated withdrawal Current Visit: No (8) Methadone maintenance therapy patient Current Visit: No (9) Bipolar 1 disorder Current Visit: No Initial treatment plan: DISCHARGE HOME ON: Trazodone 150mg po qhs. Lexapro 10mg poqd. [id number] PO TID
[2018-01-24] MEDS: THIAMINE HCL 100 MG TABLET (FP) PO SCH (21:56)
[2018-01-24] MEDS: traZODone HCL 50 MG TABLET (FP) PO SCH (21:56)
[2018-01-24] MEDS: MINERAL OIL/PETROLAT/WATER TOPICAL CREAM 113 GM JAR TP SCH (21:57)
[2018-01-24] MEDS: LIDOCAINE PATCH REMOVAL MC SCH (21:58)
[2018-01-25] MEDS ORDERED: METHADONE HCL 10 MG TABLET ONE (06:05)
[2018-01-25] MEDS ORDERED: METHADONE HCL 40 MG DISPERSABLE TABLET ONE (06:05)
[2018-01-25] MEDS: METHADONE 80 MG, METHADONE 20 MG PO SCH (06:07)
[2018-01-25] MEDS: CYCLOBENZAPRINE HCL 10 MG TABLET (FP) PO SCH (06:08)
[2018-01-25] MEDS: hydrOXYzine PAMOATE 50 MG CAPSULE (FP) PO PRN (06:09)
[2018-01-25 07:06] VITALS: BP 101/58; PULSE 61; TEMP 98.2
[2018-01-25] MEDS: MINERAL OIL/PETROLAT/WATER TOPICAL CREAM 113 GM JAR TP SCH (09:12)
[2018-01-25] MEDS: LIDOCAINE 5% TOPICAL PATCH TP SCH (09:12)
[2018-01-25] MEDS: PANTOPRAZOLE 20 MG TABLET (FP) PO SCH (09:12)
[2018-01-25] MEDS: ESCITALOPRAM OXALATE 10 MG TABLET (FP) PO SCH (09:12)
[2018-01-25] MEDS: PRENATAL VITAMINS W/ FOLIC ACID TABLET (FP) PO SCH (09:12)
[2018-01-25] MEDS: NICOTINE POLACRILEX 2 MG GUM BUC PRN (09:13)
== END 2018-01-25 10:30 | disposition home or self-care (01) | DRG 772 ==
LOC: YASAS 10:59 → Y3E 11:03
PROVIDERS: ADMIT Psychiatry & Neurology Psychiatry; ATTEND Psychiatry & Neurology Psychiatry
PROC: HZ42ZZZ Group Counseling for Substance Abuse Treatment, Cognitive-Behavioral (ICD-10-PCS; principal; 2018-01-11)
DX: F10.20 Alcohol dependence, uncomplicated (principal); F11.20 Opioid dependence, uncomplicated; F17.210 Nicotine dependence, cigarettes, uncomplicated; F41.9 Anxiety disorder, unspecified; F33.9 Major depressive disorder, recurrent, unspecified; F19.24 Other psychoactive substance dependence with psychoactive substance-induced mood disorder; F31.89 Other bipolar disorder; K21.9 Gastro-esophageal reflux disease without esophagitis; L29.8 Other pruritus; R21 Rash and other nonspecific skin eruption; M54.5 Low back pain
CPT/HCPCS: J0735

== ENCOUNTER 2018-11-19 15:25 | Emergency (ER) | payer OTHER ==
--- NOTE | 2018-11-19 15:42 | PDOC ---
Attending Attestation - Resident Resident Name: Christal Quesadaian - ED Attending Attestation I have performed the following: I have examined & evaluated the patient, The case was reviewed & discussed with the resident, I agree w/resident's findings & plan, Exceptions are as noted - HPI HPI: 11/19/18 16:00 43yo female arrives from [facility] for eval of acute etoh intoxication, polysubstance abuse, and n/v. Pt states she is supposed to be on Methadone. States she missed her dose today. Dose was lowered to 90mg yesterday by clinic per the patient. Pt states she drank and took xanax - also admits to cocaine use and "skin popping" heroin. Pt with track dimas on arms and soft tissue swelling to LUE posterior humerus. Pt intoxicated, tearful. Denies si/hi. Pt arrives from [facility] for medical clearance. - Physicial Exam PE: 11/19/18 16:02 Gen: awake, alert, oriented to person and place. intoxicated heent: PERRL, EOMI, pupils 2mm b/l, mmm heart: +s1s2 reg lungs: cta b/l abd: soft, nt/nd +bs ext: b/l UE track dimas, LUE posterior humerus soft tissue swelling/induration/ warmth/ttp- no fluctuance, pulses intact UE and LE neuro: intoxicated, aaox2-person/place, intoxicated, moving all extremities, ambulatory in the ED, no focal deficits - Medical Decision Making 11/19/18 16:03 a/p: 43yo female from [facility] intake for eval of drug use, etoh use, acutely intoxicated, n/v and missed methadone this AM -attempted to call clinic which is closed -will send labs, drug screen, preg test -pt arrives with boyfriend at the bedside -pt with track dimas to UE -pt with localized induration/warmth/redness/ttp to LUE at site of skin popping -will hydrate with banana bag, ivf hydration, bentyl/ativan, meds for n/v -will discuss with [facility] once medically clear 11/19/18 17:48 potassium 3.4 - will replace pt etoh >200 preg neg 11/19/18 18:37 will start clinda for arm infection 11/19/18 18:38 call placed to [facility] for bed availability 11/19/18 19:09 pt accepted back to [facility] for detox Heart Score/ECG Review - ECG Intrepretation Comment:: 11/19/18 17:18 sinus at 70, nl axis, qtc 511, t wave flattending diffusely, t wave inversion v3 , abnl ekg
--- NOTE | 2018-11-19 15:51 | PDOC ---
History of Present Illness - General Stated Complaint: ALCOHOL INTOXICATION Time Seen by Provider: 11/19/18 15:31 History Source: Patient Exam Limitations: Clinical Condition, Intoxication - History of Present Illness Initial Comments: Edith Vicente is a 43 yo F w a pmh of polysubstance abuse including alcohol, heroin, benzo's, crack cocaine, every day smoker, seizures from withdrawal, cirrhosis, multiple renal stones requiring surgical removal, depression, bipolar , anxiety, bulemia, and anorexia who presents to the [facility] ER BIBEMS from [facility] because she is intoxicated. [facility] sent her here to be "medically cleared." The patient was supposedly slurring her words and cannot walk straight PCP: Nasir Vaughan PSH: Kidney stone removal Allergies: NKA, NKDA Social Hx: Polysubstance abuse - see above Past History - Past Medical History Allergies/Adverse Reactions: Allergies Allergy/AdvReac Type Severity Reaction Status Date / Time No Known Allergies Allergy Verified 11/19/18 20:26 Home Medications: Ambulatory Orders Trazodone HCl 150 mg PO HS 01/08/18 Escitalopram Oxalate [Lexapro -] 10 mg PO DAILY 01/11/18 Methadone [Dolophine -] 100 mg PO DAILY 01/11/18 Escitalopram Oxalate [Lexapro -] 10 mg PO DAILY #30 tablet 01/24/18 Trazodone HCl 150 mg PO HS #30 tablet 01/24/18 hydrOXYzine PAMOATE [Vistaril -] 50 mg PO TID #90 capsule 01/24/18 Anemia: No Asthma: No Cancer: No Cardiac Disorders: No CVA: No COPD: No CHF: No Dementia: No Diabetes: No GI Disorders: No Disorders: No HTN: No Hypercholesterolemia: No Kidney Stones: Yes (Removal 2011) Liver Disease: Yes (CIRRHOSIS) Seizures: Yes (related to drugs 2months ago) Thyroid Disease: No - Reproductive History PID: No - Psycho Social/Smoking Cessation Hx Smoking History: Current every day smoker Have you smoked in the past 12 months: Yes Number of Cigarettes Smoked Daily: 5 Cigars Per Day: 0 'Breaking Loose' booklet given: 01/07/18 Hx Alcohol Use: Yes (since age 37) Drug/Substance Use Hx: Yes (nicotine, alcohol) Substance Use Type: Alcohol (consumes 1/2 gallon of vodka daily) Hx Substance Use Treatment: Yes Review of Systems - Review of Systems Able to Perform ROS?: No (intoxicated) *Physical Exam - Physical Exam Comments: GENERAL: Patient has a malodorous scent. Not well groomed. Slurring words. ataxic gait. Intoxicated. HEENT: Normocephalic, atraumatic. PERRL, EOM intact. CARDIOVASCULAR: Tachycardic rate. Normal S1, S2. Regular rhythm. PULMONARY: No evidence of respiratory distress. Lungs clear to auscultation bilaterally. No wheezing, rales or rhonchi. ABDOMEN: Soft, non-distended, non-tender. EXTREMITIES: Normal ROM in all four extremities. Left upper extremity has an erythematous area which is warm, tender, and fluctuant. SKIN: Warm, dry. Track dimas all over patient's skin. NEUROLOGICAL: No focal neurological deficits. ED Treatment Course - LABORATORY CBC & Chemistry Diagram: 11/19/18 16:54 11/19/18 16:54 Medical Decision Making - Medical Decision Making Edith Vicnete is a 43 yo F w a pmh of polysubstance abuse including alcohol, heroin, benzo's, crack cocaine, every day smoker, seizures from withdrawal, cirrhosis, multiple renal stones requiring surgical removal, depression, bipolar , anxiety, bulemia, and anorexia who presents to the [facility] ER BIBEMS from [facility] because she is intoxicated. [facility] sent her here to be "medically cleared." The patient was supposedly slurring her words and cannot walk straight Vital Signs Temp Pulse Resp BP Pulse Ox 98.0 F 18 130/70 99 11/19/18 15:25 11/19/18 15:25 11/19/18 15:30 11/19/18 15:35 DDx IBNLT: Alcohol intoxication vs withdrawal, opiate withdrawal vs intox, cellulitis/abscess, dehydration, electrolyte/metabolic disturbance. Plan: Labs, Urine, IV hydration, supportive care, EKG, Abx, re-assess. EKG: Prolonged QTc at 511, NS rate of 70, narrow complexes, normal axis, no hypertrophy, no ST elevations or depressions, TWI in 3 and v3 T wave flattening in aVL, no Q waves, TX 164 Labs: Mildly low potassium - Repleted orally Urine: HCG negative. U-tox positive for benzos and methadone Re-assessment: Patient more clinically sober - I spoke with Dr. Best who is ready to accept the patient back at [facility] Disposition: DC to [facility] Discharge - Discharge Information Problems reviewed: Yes Clinical Impression/Diagnosis: Alcohol dependence with uncomplicated withdrawal, Alcohol use disorder, moderate, in early remission Alcohol dependence Qualifiers: Substance use status: with intoxication Complication of substance-induced condition: uncomplicated Qualified Code(s): F10.220 - Alcohol dependence with intoxication, uncomplicated Condition: Improved Disposition: HOME - Admission No - Follow up/Referral Referrals: Clement Best MD [Primary Care Provider] - - Patient Discharge Instructions Patient Printed Discharge Instructions: DI for Alcohol Abuse Additional Instructions: Please go straight to [facility]. Print Language: LATVIAN - Post Discharge Activity
[2018-11-19] MEDS ORDERED: FOLIC ACID INJECTION - 1 MG, THIAMINE HCL 100 MG, MULTIVIT INJECTION ADULT 10 ML in SOD... IVPB ONE (15:52)
[2018-11-19] MEDS ORDERED: SODIUM CHLORIDE 0.9% 500 ML INFUS.BAG IV ONE (15:54)
[2018-11-19] MEDS ORDERED: DICYCLOMINE HCL 20 MG/2 ML AMPUL IM ONE (15:55)
[2018-11-19 16:03] VITALS: BMI 28.2
[2018-11-19 16:33] VITALS: TEMP 98
[2018-11-19] MEDS ORDERED: LORazepam 2 MG/ML SDV VIAL ONE (16:51)
[2018-11-19 17:08] LABS: BASO % 1.8 % (0-2.0); EOS % 0.8 % (0-4.5); HEMATOCRIT 40.9 % (32.4-45.2); HEMOGLOBIN 13.5 GM/dL (10.7-15.3); LYMPH % 30.8 % (8-40); MCH 32.2 pg (25.7-33.7); MCHC 32.9 g/dl (32.0-36.0); MEAN CELL VOLUME 97.9 fl (80-96); MEAN PLT VOLUME 8.5 fl (7.5-11.1); MONO % 7.4 % (3.8-10.2); NEUT % 59.2 % (42.8-82.8); PLATELET COUNT 302 K/MM3 (134-434); RBC 4.18 M/mm3 (3.60-5.2); RDW 16.6 % (11.6-15.6)
[2018-11-19 17:18] LABS: INR 0.98 (0.83-1.09); PROTHROMBIN TIME (PATIENT) 11.6 SEC (9.7-13.0)
[2018-11-19 17:34] LABS: ALBUMIN 3.6 g/dl (3.4-5.0); BILIRUBIN,TOTAL 0.3 mg/dL (0.2-1); BLOOD UREA NITROGEN 7.9 mg/dL (7-18); CALCIUM 8.4 mg/dL (8.5-10.1); CREATININE 0.6 mg/dL (0.55-1.3); POTASSIUM 3.4 mmol/L (3.5-5.1); TOT PROT 7.5 g/dl (6.4-8.2)
[2018-11-19 17:46] LABS: MAGNESIUM 2.3 mg/dL (1.8-2.4)
[2018-11-19] MEDS ORDERED: POTASSIUM CHLORIDE TABS 20 MEQ TABLET.ER (FP) PO ONE ×3 (17:47→19:04)
[2018-11-19] MEDS ORDERED: CLINDAMYCIN 600MG PREMIX IVPB 600 MG/50 ML BAG IVPB ONE ×4 (18:36→19:04)
[2018-11-19 18:48] VITALS: BP 91/54; PULSE 76
[2018-11-19 18:52] LABS: COCAINE, UR NEGATIVE ng/ml (CUTOFF=300); OPIATES, URI NEGATIVE ng/ml (CUTOFF=300); PHENCYCLIDINE,URINE NEGATIVE ng/ml (CUTOFF=25); URINE AMPHETAMINES NEGATIVE ng/ml (CUTOFF=500); URINE BARBITURATES NEGATIVE ng/ml (CUTOFF=200)
[2018-11-19 18:55] LABS: METHADONE, UR POSITIVE ng/ml (CUTOFF=300); URINE BENZODIAZEPINES POSITIVE ng/ml (CUTOFF=200)
--- NOTE | 2018-11-20 16:50 | EKG ---
Test Reason : Blood Pressure : / mmHG Vent. Rate : 070 BPM Atrial Rate : 070 BPM P-R Int : 164 ms QRS Dur : 074 ms QT Int : 474 ms P-R-T Axes : 058 014 017 degrees QTc Int : 511 ms NORMAL SINUS RHYTHM LOW VOLTAGE QRS PROLONGED QT ABNORMAL ECG WHEN COMPARED WITH ECG OF 08-JAN-2018 01:15, VENT. RATE HAS DECREASED BY 48 BPM T WAVE VARIATION Confirmed by BETSY GONZALES, SOPHIA ([id number]) on 11/20/2018 4:50:04 PM Referred By: Confirmed By:SOPHIA MEYER MD
== END 2018-11-19 19:45 | disposition home or self-care (01) ==
LOC: JER 15:25
PROC: 3E033GC Introduction of Other Therapeutic Substance into Peripheral Vein, Percutaneous Approach (ICD-10-PCS; principal; 2018-11-19)
PROC: 3E03329 Introduction of Other Anti-infective into Peripheral Vein, Percutaneous Approach (ICD-10-PCS; 2018-11-19)
PROC: 3E033NZ Introduction of Analgesics, Hypnotics, Sedatives into Peripheral Vein, Percutaneous Approach (ICD-10-PCS; 2018-11-19)
DX: F10.230 Alcohol dependence with withdrawal, uncomplicated (principal); Y90.8 Blood alcohol level of 240 mg/100 ml or more; E87.6 Hypokalemia; L08.89 Other specified local infections of the skin and subcutaneous tissue; G40.509 Epileptic seizures related to external causes, not intractable, without status epilepticus; F11.10 Opioid abuse, uncomplicated; F13.10 Sedative, hypnotic or anxiolytic abuse, uncomplicated; F14.10 Cocaine abuse, uncomplicated; F17.210 Nicotine dependence, cigarettes, uncomplicated; K74.60 Unspecified cirrhosis of liver; F31.9 Bipolar disorder, unspecified; Z87.442 Personal history of urinary calculi
CPT/HCPCS: 36415; 80053; 80307; 83735; 84702; 84703; 85025; 85610; 93005; 93010; 96365; 96366; 96367; 96375; 99284-25; J7030

== ENCOUNTER 2018-12-05 15:17 | Inpatient (IN) | payer OTHER ==
[2018-12-05 16:20] VITALS: BMI 22.9
--- NOTE | 2018-12-05 18:37 | HP ---
CIWA Score Nausea/Vomitin-Mild Nausea/No Vomiting Muscle Tremors: 3 Anxiety: 2 Agitation: 0-Normal Activity Paroxysmal Sweats: No Perspiration Orientation: 2-Disoriented Date<2 days Tacttile Disturbances: 0-None Auditory Disturbances: 0-None Visual Disturbances: 0-None Headache: 2-Mild CIWA-Ar Total Score: 10 - Admission Criteria [facility] Guidelines: Admission for Medically Managed Detox: Requires at least one of the followin. CIWA greater than 12 2. Seizures within the past 24 hours 3. Delirium tremens within the past 24 hours 4. Hallucinations within the past 24 hours 5. Acute intervention needed for co occurring medical disorder 6. Acute intervention needed for co occurring psychiatric disorder 7. Severe withdrawal that cannot be handled at a lower level of care (continued vomiting, continued diarrhea, abnormal vital signs) requiring intravenous medication and/or fluids 8. Admitting History and Physical - Past Medical History ...LMP: 01/10/18 - Smoking History Smoking history: Current every day smoker Have you smoked in the past 12 months: Yes Aproximately how many cigarettes per day: 5 - Alcohol/Substance Use Hx Alcohol Use: Yes (since age 37) Admission ROS [facility] Chief Complaint: Edith Vicente is a 43 year old female presenting for alcohol abuse. Allergies/Adverse Reactions: Allergies Allergy/AdvReac Type Severity Reaction Status Date / Time No Known Allergies Allergy Verified 12/05/18 16:07 History of Present Illness: Edith Vicente is a 43 year old female presenting for alcohol abuse. Alcohol: 1/2 gallon of vodka daily. Daily drinker. Last drink was before she arrived at this facility. Has had seizure before, 6 months ago. Has had blackouts, regular basis. Has had multiple falls. Is on methadone program, through [facility], 70mg, last dosed on 12/05. Goes daily to facility. Benzodiazepines: Xanax 6-7 bars daily. Klonopin 9 tabs daily. Takes pill, denies inhalation or IVDU. Cocaine: occasional use, 2 days ago. Heroin: last used one week ago, has a history of IVDU Medical History: pancreatitis, ?cardiac condition, kidney stones, cirrhosis Surgical History: kidney stones Psychiatric: bipolar, anxiety, depression Smokin cigarettes daily Social: apartment, lives with fiance. Stated that she had pancreatitis in the last 2 months and was told she has a cyst around her pancreas. Patient actively intoxicated and poorly compliant with ROS and PE. Low CIWA due to current intoxication. Due to intoxication and large alcohol usage patient will necessitate detox due to expected withdrawal symptoms. [facility]. Will need verification of methadone dose through her program in the morning. Exam Limitations: Intoxication - Ebola screening Have you traveled outside of the country in the last 21 days: No Have you had contact with anyone from an Ebola affected area: No - Review of Systems Constitutional: Weakness Respiratory: reports: No Symptoms reported GI: reports: Nausea, Abdominal cramping, Other (epigastric pain) : reports: No Symptoms Reported Integumentary: reports: No Symptoms Reported Neuro: reports: Dizziness Patient History - Patient Medical History Hx Anemia: No Hx Asthma: No Hx Chronic Obstructive Pulmonary Disease (COPD): No Hx Cancer: No Hx Cardiac Disorders: No Hx Congestive Heart Failure: No Hx Hypertension: No Hx Hypercholesterolemia: No Hx Pacemaker: No HX Cerebrovascular Accident: No Hx Seizures: Yes (related to drugs 2months ago) Hx Dementia: No Hx Diabetes: No Hx Gastrointestinal Disorders: No Hx Liver Disease: Yes (CIRRHOSIS) Hx Genitourinary Disorders: No Hx Sexually Transmitted Disorders: No Hx Renal Disease (ESRD): Yes Hx Thyroid Disease: No Hx Human Immunodeficiency Virus (HIV): No Hx Hepatitis C: No Hx Depression: Yes Hx Suicide Attempt: Yes (20yrs with pills) Hx Bipolar Disorder: Yes Hx Schizophrenia: No - Patient Surgical History Past Surgical History: Yes Other Surgical History: kIDNEY STONES REMOVAL Anesthesia Reaction: Yes - PPD History Previous Implant?: Yes Documented Results: Negative w/o proof Date: 01/10/18 Results: 0mm PPD to be Administered?: No - Reproductive History Patient is a Female of Child Bearing Age (11 -55 yrs old): Yes Last Menstrual Period: 11/22/18 - Smoking Cessation Smoking history: Current every day smoker Have you smoked in the past 12 months: Yes Aproximately how many cigarettes per day: 5 Cigars Per Day: 0 Hx Chewing Tobacco Use: No Initiated information on smoking cessation: Yes 'Breaking Loose' booklet given: 12/05/18 - Substance & Tx. History Hx Alcohol Use: Yes Hx Substance Use: Yes Substance Use Type: Alcohol, Cocaine, Heroin, Tranquilizers - Substances abused Alcohol Substance route: Oral Frequency: Daily Amount used: 1 pint of vodka Age of first use: 20 Date of last use: 12/05/18 Alprazolam (Xanax) Substance route: Oral Frequency: Daily Amount used: 4bars Age of first use: 38 Date of last use: 12/05/18 Admission Physical Exam S - Vital Signs Vital Signs: Vital Signs - 24 hr 12/05/18 16:16 Temperature 97.1 F L Pulse Rate 68 Respiratory 14 Rate Blood Pressure 91/67 - Physical General Appearance: Yes: Intoxicated HEENTM: Yes: EOMI, ROGERIO, Pharynx Normal Respiratory: Yes: No Respiratory Distress, No Accessory Muscle Use, Wheezing ( expiratory wheezing) Neck: Yes: No masses,lesions,Nodules, Trachea in good position Breast: Yes: Breast Exam Deferred Cardiology: Yes: Regular Rhythm, Regular Rate, S1, S2 Abdominal: Yes: Normal Bowel Sounds, Flat, Tenderness (in the epigastric region) Genitourinary: Yes: Within Normal Limits Back: Yes: Normal Inspection Musculoskeletal: Yes: full range of Motion Extremities: Yes: Normal Inspection, Normal Range of Motion Neurological: Yes: Other (poor cooperation with neurological exam) Integumentary: Yes: Normal Color, Dry, Track Dimas (old track dimas noted on R AC), Other (cool skin) - Diagnostic (1) History of pancreatitis Current Visit: Yes Status: Acute (2) Alcohol dependence Current Visit: No Status: Acute Qualifiers: Substance use status: with intoxication Complication of substance-induced condition: uncomplicated Qualified Code(s): F10.220 - Alcohol dependence with intoxication, uncomplicated (3) At risk for dehydration due to poor fluid intake Current Visit: No Status: Acute (4) Nicotine dependence Current Visit: No Status: Acute Qualifiers: Nicotine product type: cigarettes Substance use status: uncomplicated Qualified Code(s): F17.210 - Nicotine dependence, cigarettes, uncomplicated (5) Acid reflux Current Visit: No Status: Chronic Qualifiers: Esophagitis presence: esophagitis presence not specified Qualified Code(s) : K21.9 - Gastro-esophageal reflux disease without esophagitis (6) Methadone maintenance therapy patient Current Visit: No Status: Chronic (7) Anxiety Current Visit: No Status: Suspected (8) Bipolar 1 disorder Current Visit: No Status: Suspected (9) Depression Current Visit: No Status: Suspected Qualifiers: Depression Type: major depressive disorder Cle[facility] for [facility] - [facility] Level of Care: Medically Managed Detox Regimen/Protocol: Librium Breathalyzer - Breathalyzer Breathalyzer: 0.248 Urine Drug Screen - Test Device Lot number: [id number] Expiration date: 07/22/20 - Control Is test valid?: Yes - Results Drug screen NEGATIVE: Yes Urine drug screen results: MTD-Methadone, BZO-Benzodiazepines Inpatient Rehab Admission - Rehab Decision to Admit Inpatient rehab admission?: No
--- NOTE | 2018-12-05 19:03 | PN ---
Teaching Attending Note Name of Resident: Gagandeep Mario ATTENDING PHYSICIAN STATEMENT I saw and evaluated the patient. I reviewed the resident's note and discussed the case with the resident. I agree with the resident's findings and plan as documented. SUBJECTIVE: 43 yo with long h/o AUD. Here with alcohol intoxication. Pt states she is also using benzo- xanax, klonopin. Pt requesting detox OBJECTIVE: Vital Signs - 24 hr 12/05/18 16:16 Temperature 97.1 F L Pulse Rate 68 Respiratory 14 Rate Blood Pressure 91/67 sleeping ASSESSMENT AND PLAN: Alcohol intoxication- pt to be admitted, expect pt to be in withdrawal in a few hours
[2018-12-05] MEDS ORDERED: MAGNESIUM HYDROX 2400MG/30ML ORAL SUSPENSION 30 ML CUP PO PRN (19:06)
[2018-12-05] MEDS ORDERED: chlordiazePOXIDE HCL 25 MG CAPSULE PO ONE (19:06)
[2018-12-05] MEDS ORDERED: MENTHOL/PHENOL 1 EACH UD MM PRN (19:06)
[2018-12-05] MEDS ORDERED: ACETAMINOPHEN 325 MG TABLET (FP) PO PRN ×2 (19:06)
[2018-12-05] MEDS ORDERED: IBUPROFEN 400 MG TABLET (FP) PO PRN (19:06)
[2018-12-05] MEDS ORDERED: MAGNESIUM CITRATE 300 ML BOTTLE PO PRN (19:06)
[2018-12-05] MEDS ORDERED: chlordiazePOXIDE HCL 25 MG CAPSULE PO PRN ×2 (19:06→19:16)
[2018-12-05] MEDS ORDERED: BISMUTH SUBSALICYLATE 524 MG/30 ML UD PO PRN (19:06)
[2018-12-05] MEDS ORDERED: MAG HYDROX/AL HYDROX/SIMETH 30 ML UNIT-DOSE CUP PO PRN (19:06)
[2018-12-05] MEDS ORDERED: ALBUTEROL SO4 8 GM HFA INHALER IH PRN (19:13)
[2018-12-05] MEDS ORDERED: chlordiazePOXIDE HCL 25 MG CAPSULE PO SCH (23:00)
[2018-12-05] MEDS: THIAMINE HCL 100 MG TABLET (FP) PO SCH (23:37)
[2018-12-06] MEDS ORDERED: chlordiazePOXIDE HCL 25 MG CAPSULE PO PRN (05:00)
[2018-12-06] MEDS: chlordiazePOXIDE HCL 25 MG CAPSULE PO SCH ×4 (05:48→22:06)
[2018-12-06] MEDS ORDERED: METHADONE HCL 10 MG TABLET PO ONE (08:50)
[2018-12-06] MEDS ORDERED: METHADONE 40 MG, METHADONE 30 MG PO ONE (09:10)
[2018-12-06] MEDS ORDERED: METHADONE HCL 10 MG TABLET ONE (09:16)
[2018-12-06] MEDS ORDERED: METHADONE HCL 40 MG DISPERSABLE TABLET ONE (09:17)
[2018-12-06 09:34] LABS: HEMATOCRIT 44.9 % (32.4-45.2); HEMOGLOBIN 14.8 GM/dL (10.7-15.3); MCH 32.8 pg (25.7-33.7); MCHC 32.9 g/dl (32.0-36.0); MEAN CELL VOLUME 99.6 fl (80-96); MEAN PLT VOLUME 9.9 fl (7.5-11.1); PLATELET COUNT 202 K/MM3 (134-434); RBC 4.51 M/mm3 (3.60-5.2); RDW 16.1 % (11.6-15.6); WHITE BLOOD COUNT 5.5 K/mm3 (4.0-10.0)
[2018-12-06 09:50] LABS: ALBUMIN 3.4 g/dl (3.4-5.0); BILIRUBIN,TOTAL 0.9 mg/dL (0.2-1); BLOOD UREA NITROGEN 9.4 mg/dL (7-18); CREATININE 0.8 mg/dL (0.55-1.3); TOT PROT 6.9 g/dl (6.4-8.2)
[2018-12-06] MEDS: PRENATAL VITAMINS W/ FOLIC ACID TABLET (FP) PO SCH (10:49)
[2018-12-06] MEDS: NICOTINE 14 MG/24 HOURS TOPICAL PATCH TD SCH (10:49)
--- NOTE | 2018-12-06 11:50 | PN ---
S CIWA - CIWA Score Nausea/Vomitin-No Nausea/No Vomiting Muscle Tremors: 3 Anxiety: 3 Agitation: 4-Moderately Restless Paroxysmal Sweats: 3 Orientation: 0-Oriented Tacttile Disturbances: 0-None Auditory Disturbances: 0-None Visual Disturbances: 0-None Headache: 0-None Present CIWA-Ar Total Score: 13 [facility] Progress Note (SOAP) Subjective: body aches sweats irritable agitation interrupted sleep anxiety Objective: 12/06/18 11:49 Vital Signs Temperature 97.5 F L 12/06/18 06:00 Pulse Rate 64 12/06/18 06:00 Respiratory Rate 18 12/06/18 06:00 Blood Pressure 120/73 12/06/18 06:00 O2 Sat by Pulse Oximetry (%) Laboratory Tests 12/05/18 12/06/18 12/06/18 23:38 07:50 07:50 WBC 5.5 RBC 4.51 Hgb 14.8 Hct 44.9 MCV 99.6 H MCH 32.8 MCHC 32.9 RDW 16.1 H Plt Count 202 D MPV 9.9 D Sodium 138 Potassium 4.0 Chloride 99 Carbon Dioxide 31 Anion Gap 8 BUN 9.4 Creatinine 0.8 Est GFR (CKD-EPI)AfAm 104.65 Est GFR (CKD-EPI)NonAf 90.30 Random Glucose 107 H Calcium 9.0 Total Bilirubin 0.9 AST 82 H ALT 42 Alkaline Phosphatase 135 H Total Protein 6.9 Albumin 3.4 POC Urine HCG, Qual Negative labs noted aaox3 ambulating no acute distress Assessment: 12/06/18 11:50 withdrawal sx Plan: continue detox increase fluids
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
[2018-12-06] MEDS: ESCITALOPRAM OXALATE 10 MG TABLET (FP) PO SCH (15:01)
[2018-12-06] MEDS: GABAPENTIN 300 MG CAPSULE (FP) PO SCH ×2 (15:01→22:06)
[2018-12-06] MEDS: hydrOXYzine PAMOATE 25 MG CAPSULE (FP) PO PRN (17:34)
[2018-12-06] MEDS: THIAMINE HCL 100 MG TABLET (FP) PO SCH (22:06)
[2018-12-06] MEDS: traZODone HCL 50 MG TABLET (FP) PO SCH (22:06)
[2018-12-07] MEDS ORDERED: chlordiazePOXIDE HCL 10 MG CAPSULE PO PRN
[2018-12-07] MEDS ORDERED: chlordiazePOXIDE HCL 25 MG CAPSULE PO SCH (05:00)
[2018-12-07] MEDS ORDERED: METHADONE HCL 40 MG DISPERSABLE TABLET ONE (05:11)
[2018-12-07] MEDS ORDERED: METHADONE HCL 10 MG TABLET ONE (05:11)
[2018-12-07] MEDS ORDERED: METHADONE HCL 40 MG DISPERSABLE TABLET PO SCH (06:00)
[2018-12-07] MEDS: hydrOXYzine PAMOATE 25 MG CAPSULE (FP) PO PRN ×2 (06:55→14:40)
[2018-12-07] MEDS: METHADONE 40 MG, METHADONE 30 MG PO SCH (06:55)
[2018-12-07] MEDS: GABAPENTIN 300 MG CAPSULE (FP) PO SCH ×3 (06:56→22:16)
[2018-12-07] MEDS: chlordiazePOXIDE HCL 25 MG CAPSULE PO SCH ×4 (06:56→22:16)
[2018-12-07] MEDS: ESCITALOPRAM OXALATE 10 MG TABLET (FP) PO SCH (10:29)
[2018-12-07] MEDS: NICOTINE 14 MG/24 HOURS TOPICAL PATCH TD SCH (10:29)
[2018-12-07] MEDS: PRENATAL VITAMINS W/ FOLIC ACID TABLET (FP) PO SCH (10:29)
--- NOTE | 2018-12-07 14:08 | PN ---
S CIWA - CIWA Score Nausea/Vomitin-No Nausea/No Vomiting Muscle Tremors: 3 Anxiety: 3 Agitation: 3 Paroxysmal Sweats: 2 Orientation: 0-Oriented Tacttile Disturbances: 0-None Auditory Disturbances: 0-None Visual Disturbances: 0-None Headache: 0-None Present CIWA-Ar Total Score: 11 S Progress Note (SOAP) Subjective: sweats stomach ache body aches Objective: 12/07/18 14:07 Vital Signs Temperature 97.6 F 12/07/18 13:12 Pulse Rate 63 12/07/18 13:12 Respiratory Rate 18 12/07/18 13:12 Blood Pressure 90/50 L 12/07/18 13:12 O2 Sat by Pulse Oximetry (%) Laboratory Tests 12/05/18 12/06/18 12/06/18 23:38 07:50 07:50 WBC 5.5 RBC 4.51 Hgb 14.8 Hct 44.9 MCV 99.6 H MCH 32.8 MCHC 32.9 RDW 16.1 H Plt Count 202 D MPV 9.9 D Sodium 138 Potassium 4.0 Chloride 99 Carbon Dioxide 31 Anion Gap 8 BUN 9.4 Creatinine 0.8 Est GFR (CKD-EPI)AfAm 104.65 Est GFR (CKD-EPI)NonAf 90.30 Random Glucose 107 H Calcium 9.0 Total Bilirubin 0.9 AST 82 H ALT 42 Alkaline Phosphatase 135 H Total Protein 6.9 Albumin 3.4 POC Urine HCG, Qual Negative RPR Titer 12/06/18 07:50 WBC RBC Hgb Hct MCV MCH MCHC RDW Plt Count MPV Sodium Potassium Chloride Carbon Dioxide Anion Gap BUN Creatinine Est GFR (CKD-EPI)AfAm Est GFR (CKD-EPI)NonAf Random Glucose Calcium Total Bilirubin AST ALT Alkaline Phosphatase Total Protein Albumin POC Urine HCG, Qual RPR Titer Nonreactive labs noted aaox3 lying in bed no acute distress Assessment: 12/07/18 14:08 withdrawals Plan: continue detox increase fluids
[2018-12-07] MEDS: METHOCARBAMOL 500 MG TABLET PO PRN (17:19)
[2018-12-07] MEDS ORDERED: PROCHLORPERAZINE MALEATE 5 MG TABLET PO PRN (18:26)
[2018-12-07] MEDS: MELATONIN 5 MG TABLETS PO PRN (22:16)
[2018-12-07] MEDS: PANTOPRAZOLE 20 MG TABLET (FP) PO SCH (22:16)
[2018-12-07] MEDS: traZODone HCL 50 MG TABLET (FP) PO SCH (22:16)
[2018-12-08] MEDS ORDERED: chlordiazePOXIDE HCL 10 MG CAPSULE PO PRN
[2018-12-08] MEDS: THIAMINE HCL 100 MG TABLET (FP) PO SCH ×2 (00:22→22:22)
[2018-12-08] MEDS ORDERED: chlordiazePOXIDE HCL 10 MG CAPSULE PO SCH (05:00)
[2018-12-08] MEDS ORDERED: METHADONE HCL 40 MG DISPERSABLE TABLET ONE (05:27)
[2018-12-08] MEDS ORDERED: METHADONE HCL 10 MG TABLET ONE (05:27)
[2018-12-08] MEDS: METHADONE 40 MG, METHADONE 30 MG PO SCH (07:35)
[2018-12-08] MEDS: GABAPENTIN 300 MG CAPSULE (FP) PO SCH ×3 (07:35→22:22)
[2018-12-08] MEDS: METHOCARBAMOL 500 MG TABLET PO PRN ×2 (07:36→17:51)
[2018-12-08] MEDS: chlordiazePOXIDE HCL 10 MG CAPSULE PO SCH ×4 (07:37→22:22)
[2018-12-08] MEDS: ESCITALOPRAM OXALATE 10 MG TABLET (FP) PO SCH (11:22)
[2018-12-08] MEDS: PANTOPRAZOLE 20 MG TABLET (FP) PO SCH (11:22)
[2018-12-08] MEDS: PRENATAL VITAMINS W/ FOLIC ACID TABLET (FP) PO SCH (11:23)
[2018-12-08] MEDS: NICOTINE 14 MG/24 HOURS TOPICAL PATCH TD SCH (11:23)
--- NOTE | 2018-12-08 11:38 | PN ---
S CIWA - CIWA Score Nausea/Vomitin-No Nausea/No Vomiting Muscle Tremors: 3 Anxiety: 2 Agitation: 2 Paroxysmal Sweats: 2 Orientation: 0-Oriented Tacttile Disturbances: 0-None Auditory Disturbances: 0-None Visual Disturbances: 0-None Headache: 0-None Present CIWA-Ar Total Score: 9 BHS Progress Note (SOAP) Subjective: mild shakes sweats feeling better than yesterday Objective: 12/08/18 11:38 Vital Signs Temperature 96.6 F L 12/08/18 07:13 Pulse Rate 101 H 12/08/18 07:28 Respiratory Rate 20 12/08/18 07:28 Blood Pressure 104/66 12/08/18 07:28 O2 Sat by Pulse Oximetry (%) Laboratory Tests 12/05/18 12/06/18 12/06/18 23:38 07:50 07:50 WBC 5.5 RBC 4.51 Hgb 14.8 Hct 44.9 MCV 99.6 H MCH 32.8 MCHC 32.9 RDW 16.1 H Plt Count 202 D MPV 9.9 D Sodium 138 Potassium 4.0 Chloride 99 Carbon Dioxide 31 Anion Gap 8 BUN 9.4 Creatinine 0.8 Est GFR (CKD-EPI)AfAm 104.65 Est GFR (CKD-EPI)NonAf 90.30 Random Glucose 107 H Calcium 9.0 Total Bilirubin 0.9 AST 82 H ALT 42 Alkaline Phosphatase 135 H Total Protein 6.9 Albumin 3.4 POC Urine HCG, Qual Negative RPR Titer 12/06/18 07:50 WBC RBC Hgb Hct MCV MCH MCHC RDW Plt Count MPV Sodium Potassium Chloride Carbon Dioxide Anion Gap BUN Creatinine Est GFR (CKD-EPI)AfAm Est GFR (CKD-EPI)NonAf Random Glucose Calcium Total Bilirubin AST ALT Alkaline Phosphatase Total Protein Albumin POC Urine HCG, Qual RPR Titer Nonreactive labs noted aaox3 ambulating no acute distress Assessment: 12/08/18 11:38 mild withdrawals Plan: continue detox increase fluids
[2018-12-08] MEDS: hydrOXYzine PAMOATE 25 MG CAPSULE (FP) PO PRN ×2 (15:44→21:01)
[2018-12-08] MEDS: traZODone HCL 50 MG TABLET (FP) PO SCH (22:21)
[2018-12-08] MEDS: MELATONIN 5 MG TABLETS PO PRN (22:23)
[2018-12-09] MEDS ORDERED: METHADONE HCL 10 MG TABLET ONE (03:37)
[2018-12-09] MEDS ORDERED: METHADONE HCL 40 MG DISPERSABLE TABLET ONE (03:37)
[2018-12-09] MEDS ORDERED: chlordiazePOXIDE HCL 10 MG CAPSULE PO SCH (05:00)
[2018-12-09] MEDS: METHADONE 40 MG, METHADONE 30 MG PO SCH (06:45)
[2018-12-09] MEDS: GABAPENTIN 300 MG CAPSULE (FP) PO SCH ×3 (06:46→22:07)
[2018-12-09] MEDS: chlordiazePOXIDE HCL 10 MG CAPSULE PO SCH ×2 (06:46→17:35)
[2018-12-09] MEDS: hydrOXYzine PAMOATE 25 MG CAPSULE (FP) PO PRN ×2 (06:48→13:34)
[2018-12-09] MEDS: NICOTINE 14 MG/24 HOURS TOPICAL PATCH TD SCH (10:56)
[2018-12-09] MEDS: PANTOPRAZOLE 20 MG TABLET (FP) PO SCH (10:56)
[2018-12-09] MEDS: PRENATAL VITAMINS W/ FOLIC ACID TABLET (FP) PO SCH (10:56)
[2018-12-09] MEDS: ESCITALOPRAM OXALATE 10 MG TABLET (FP) PO SCH (10:56)
--- NOTE | 2018-12-09 15:09 | PN ---
S CIWA - CIWA Score Nausea/Vomitin-No Nausea/No Vomiting Muscle Tremors: 2 Anxiety: 1-Mildly Anxious Agitation: 1-Slight > Activity Paroxysmal Sweats: 2 Orientation: 0-Oriented Tacttile Disturbances: 0-None Auditory Disturbances: 0-None Visual Disturbances: 0-None Headache: 0-None Present CIWA-Ar Total Score: 6 BHS Progress Note (SOAP) Subjective: sweats Objective: 12/09/18 15:09 Vital Signs Temperature 97.9 F 12/09/18 14:25 Pulse Rate 85 12/09/18 14:25 Respiratory Rate 16 12/09/18 14:25 Blood Pressure 96/50 L 12/09/18 14:25 O2 Sat by Pulse Oximetry (%) aaox3 ambulating no acute distress Assessment: 12/09/18 15:09 mild withdrawal sx Plan: continue detox d/c in am
[2018-12-09] MEDS: traZODone HCL 50 MG TABLET (FP) PO SCH (22:07)
[2018-12-09] MEDS: THIAMINE HCL 100 MG TABLET (FP) PO SCH (22:07)
[2018-12-09] MEDS: MELATONIN 5 MG TABLETS PO PRN (22:09)
[2018-12-10] MEDS ORDERED: METHADONE HCL 10 MG TABLET ONE (04:11)
[2018-12-10] MEDS ORDERED: METHADONE HCL 40 MG DISPERSABLE TABLET ONE (04:11)
[2018-12-10] MEDS ORDERED: chlordiazePOXIDE HCL 10 MG CAPSULE PO ONE ×2 (05:00)
[2018-12-10] MEDS: METHADONE 40 MG, METHADONE 30 MG PO SCH (05:58)
[2018-12-10] MEDS: GABAPENTIN 300 MG CAPSULE (FP) PO SCH (05:59)
[2018-12-10 07:23] VITALS: BP 105/72; PULSE 80; TEMP 96.6
== END 2018-12-10 06:34 | disposition home or self-care (01) | DRG 773 ==
LOC: YASAS 15:17 → Y6N 19:17
PROVIDERS: ADMIT Allergy & Immunology; ATTEND Allergy & Immunology
PROC: HZ2ZZZZ Detoxification Services for Substance Abuse Treatment (ICD-10-PCS; principal; 2018-12-05)
DX: F10.230 Alcohol dependence with withdrawal, uncomplicated (principal); F11.20 Opioid dependence, uncomplicated; F13.20 Sedative, hypnotic or anxiolytic dependence, uncomplicated; F17.210 Nicotine dependence, cigarettes, uncomplicated; F19.282 Other psychoactive substance dependence with psychoactive substance-induced sleep disorder; F19.24 Other psychoactive substance dependence with psychoactive substance-induced mood disorder; F31.81 Bipolar II disorder; F41.9 Anxiety disorder, unspecified; K21.9 Gastro-esophageal reflux disease without esophagitis; K86.9 Disease of pancreas, unspecified; M54.5 Low back pain; G89.29 Other chronic pain; K74.60 Unspecified cirrhosis of liver; Z87.442 Personal history of urinary calculi; Z86.69 Personal history of other diseases of the nervous system and sense organs; Z91.89 Other specified personal risk factors, not elsewhere classified
CPT/HCPCS: 36415; 80053; 81025; 85027; 86593

== ENCOUNTER 2018-12-10 09:26 | Inpatient (IN) | payer OTHER ==
[2018-12-10 10:09] VITALS: BMI 24.6
--- NOTE | 2018-12-10 11:39 | HP ---
COWS - Scale Resting Pulse: 0= ME 80 or Below Sweatin= Chills/Flushing Restless Observation: 1= Difficult to Sit Still Pupil Size: 0= Normal to Room Light Bone or Joint Aches: 1= Mild Discomfort Runny Nose/ Eye Tearin= None GI Upset > 30mins: 2= Nausea/Diarrhea Tremor Observation: 1= Tremor [place], Not Seen Yawning Observation: 0= None Anxiety or Irritability: 1=Feels Anxious/Irritable Goose Flesh Skin: 0=Smooth Skin COWS Score: 7 CIWA Score - Admission Criteria OASAS Guidelines: Admission for Medically Managed Detox: Requires at least one of the followin. CIWA greater than 12 2. Seizures within the past 24 hours 3. Delirium tremens within the past 24 hours 4. Hallucinations within the past 24 hours 5. Acute intervention needed for co occurring medical disorder 6. Acute intervention needed for co occurring psychiatric disorder 7. Severe withdrawal that cannot be handled at a lower level of care (continued vomiting, continued diarrhea, abnormal vital signs) requiring intravenous medication and/or fluids 8. Admitting History and Physical - Admission History Source: Patient Limitations to Obtaining History: No Limitations - Past Medical History Hepatobiliary: Yes: Hepatitis C ...LMP: 11/22/18 - Smoking History Smoking history: Current every day smoker Have you smoked in the past 12 months: Yes Aproximately how many cigarettes per day: 5 - Alcohol/Substance Use Hx Alcohol Use: Yes Admission ROS S - HPI Chief Complaint: I was supposed to go to [facility] but the bus didnt come and my counselor says I can stay here for rehab Allergies/Adverse Reactions: Allergies Allergy/AdvReac Type Severity Reaction Status Date / Time No Known Allergies Allergy Verified 12/10/18 09:40 History of Present Illness: Patient is a 43 year old woman who completed detox this morning and was scheduled to go to [facility] for rehab. According to patient, she was not picked up timely and was later told there are no beds at [facility] for her. She is being admitted to [facility] rehab. Exam Limitations: No Limitations - Ebola screening Have you traveled outside of the country in the last 21 days: No Have you had contact with anyone from an Ebola affected area: No Have you been sick,other than usual withdrawal symptoms: No Do you have a fever: No - Review of Systems Constitutional: Chills (on and off), Loss of Appetite EENT: reports: No Symptoms Reported Respiratory: reports: No Symptoms reported Cardiac: reports: Palpitations (sometime) GI: reports: Poor Appetite, Abdominal cramping : reports: No Symptoms Reported Musculoskeletal: reports: Back Pain Integumentary: reports: No Symptoms Reported Neuro: reports: Headache (h/o migraine) Endocrine: reports: No Symptoms Reported Hematology: reports: No Symptoms Reported Psychiatric: reports: Anxious, Depressed Other Systems: Reviewed and Negative Patient History - Patient Medical History Hx Anemia: No Hx Asthma: No Hx Chronic Obstructive Pulmonary Disease (COPD): No Hx Cancer: No Hx Cardiac Disorders: No Hx Congestive Heart Failure: No Hx Hypertension: No Hx Hypercholesterolemia: No Hx Pacemaker: No HX Cerebrovascular Accident: No Hx Seizures: No Hx Dementia: No Hx Diabetes: No Hx Gastrointestinal Disorders: Yes (GERD) Hx Liver Disease: Yes (CIRRHOSIS) Hx Genitourinary Disorders: No Hx Sexually Transmitted Disorders: No Hx Renal Disease (ESRD): No Hx Thyroid Disease: No Hx Human Immunodeficiency Virus (HIV): No Hx Hepatitis C: No Hx Depression: Yes Hx Suicide Attempt: Yes (20yrs ago with pills) Hx Bipolar Disorder: Yes Hx Schizophrenia: No - Patient Surgical History Past Surgical History: Yes Other Surgical History: Kidney stones removal Anesthesia Reaction: No - PPD History Date: 01/10/18 Results: 0mm - Reproductive History Last Menstrual Period: 11/22/18 - Smoking Cessation Smoking history: Current every day smoker Have you smoked in the past 12 months: Yes Aproximately how many cigarettes per day: 5 Cigars Per Day: 0 Hx Chewing Tobacco Use: No Initiated information on smoking cessation: Yes 'Breaking Loose' booklet given: 12/10/18 - Substances abused Benzodiazepine (Klonopin) Substance route: Oral Frequency: Daily Amount used: 10 sticks Age of first use: 42 Date of last use: 12/05/18 Alprazolam (Xanax) Substance route: Oral Frequency: Daily Amount used: 15 tablets Age of first use: 41 Date of last use: 11/18/18 Alcohol Substance route: Oral Frequency: Daily Amount used: half gallon of pure alcohol. Age of first use: 41 Date of last use: 11/19/18 Heroin Substance route: Injection Frequency: Daily Amount used: 8 bags Age of first use: 28 Date of last use: 11/17/18 Admission Physical Exam S - Vital Signs Vital Signs: Vital Signs - 24 hr 12/10/18 09:58 Temperature 97.0 F L Pulse Rate 80 Respiratory 18 Rate Blood Pressure 92/70 - Physical General Appearance: Yes: No Apparent Distress HEENTM: Yes: EOMI, Hearing grossly Normal, Normocephalic, Normal Voice Respiratory: Yes: Chest Non-Tender, Lungs Clear, Normal Breath Sounds, No Respiratory Distress, No Accessory Muscle Use Neck: Yes: No masses,lesions,Nodules, Supple Breast: Yes: Breast Exam Deferred Cardiology: Yes: Regular Rhythm, Regular Rate Abdominal: Yes: Normal Bowel Sounds, Soft, Tenderness (in the epigastric area) Genitourinary: Yes: Burning, Frequency Musculoskeletal: Yes: Back pain Extremities: Yes: Normal Range of Motion, Non-Tender Neurological: Yes: data entry clerk II-XII NML intact, Fully Oriented, Alert, Normal Mood/ Affect Integumentary: Yes: Normal Color Lymphatic: Yes: Within Normal Limits - Diagnostic (1) Alcohol dependence with uncomplicated withdrawal Current Visit: No Status: Chronic (2) History of pancreatitis Current Visit: No Status: Chronic (3) Insomnia Current Visit: No Status: Acute Qualifiers: Insomnia type: other insomnia Qualified Code(s): G47.09 - Other insomnia (4) Sedative hypnotic or anxiolytic dependence Current Visit: No Status: Chronic (5) Acid reflux Current Visit: No Status: Chronic Qualifiers: Esophagitis presence: esophagitis presence not specified Qualified Code(s) : K21.9 - Gastro-esophageal reflux disease without esophagitis (6) Bipolar II disorder Current Visit: No Status: Chronic (7) Cirrhosis of liver Current Visit: No Status: Chronic Qualifiers: Hepatic cirrhosis type: alcoholic cirrhosis (8) Low back pain Current Visit: No Status: Chronic Qualifiers: Chronicity: chronic Back pain laterality: midline Sciatica presence: unspecified whether sciatica present Qualified Code(s): M54.5 - Low back pain ; G89.29 - Other chronic pain (9) Methadone maintenance therapy patient Current Visit: Yes Status: Chronic (10) Nicotine dependence Current Visit: No Status: Chronic Qualifiers: Nicotine product type: cigarettes Substance use status: uncomplicated Qualified Code(s): F17.210 - Nicotine dependence, cigarettes, uncomplicated Cleared for Admission [facility] - Detox or Rehab [facility] Level of Care: Medically Managed Detox Regimen/Protocol: Not Applicable Claeared for Rehab Admission: Yes Breathalyzer - Breathalyzer Breathalyzer: 0 Urine Drug Screen - Test Device Lot number: [id number] Expiration date: 07/22/20 - Control Is test valid?: Yes - Results Drug screen NEGATIVE: No Urine drug screen results: MTD-Methadone, BZO-Benzodiazepines Inpatient Rehab Admission - Rehab Decision to Admit Inpatient rehab admission?: Yes - Initial Determination Are CD services needed?: Yes Free of communicable disease: Yes Not in need of hospitalization: Yes - Rehab Admission Criteria Previous failed treatment: Yes Poor recovery environment: Yes Comorbidities: Yes Lacks judgement: Yes Patient is meeting Inpatient Rehab admission criteria:: Yes
[2018-12-10] MEDS ORDERED: MENTHOL/PHENOL 1 EACH UD MM PRN (11:46)
[2018-12-10] MEDS ORDERED: ACETAMINOPHEN 325 MG TABLET (FP) PO PRN (11:46)
[2018-12-10] MEDS ORDERED: MAG HYDROX/AL HYDROX/SIMETH 30 ML UNIT-DOSE CUP PO PRN (11:46)
[2018-12-10] MEDS ORDERED: LOPERAMIDE HCL 2 MG CAPSULE PO PRN (11:46)
[2018-12-10] MEDS ORDERED: guaiFENesin 200 MG/10 ML 10 ML UNIT-DOSE CUPS PO PRN (11:46)
[2018-12-10] MEDS ORDERED: P-EPHED 60MG/TRIPROLIDI 2.5MG TABLET PO PRN (11:46)
[2018-12-10] MEDS ORDERED: NICOTINE POLACRILEX 2 MG GUM BUC PRN (11:46)
[2018-12-10] MEDS ORDERED: IBUPROFEN 400 MG TABLET (FP) PO PRN (11:46)
[2018-12-10] MEDS ORDERED: MAGNESIUM CITRATE 300 ML BOTTLE PO PRN (11:46)
[2018-12-10] MEDS ORDERED: FAMOTIDINE 20 MG TABLET PO SCH (12:00)
[2018-12-10] MEDS: NICOTINE 14 MG/24 HOURS TOPICAL PATCH TD SCH (14:43)
[2018-12-10] MEDS: MAGNESIUM HYDROX 2400MG/30ML ORAL SUSPENSION 30 ML CUP PO PRN (14:43)
[2018-12-10] MEDS: MELATONIN 5 MG TABLETS PO PRN (21:11)
[2018-12-10] MEDS: THIAMINE HCL 100 MG TABLET (FP) PO SCH (21:11)
[2018-12-10] MEDS: RANITIDINE HCL 150 MG TABLET (FP) PO SCH (21:11)
[2018-12-11] MEDS ORDERED: METHADONE HCL 40 MG DISPERSABLE TABLET ONE (04:01)
[2018-12-11] MEDS ORDERED: METHADONE HCL 10 MG TABLET ONE (04:01)
[2018-12-11] MEDS ORDERED: METHADONE HCL 40 MG DISPERSABLE TABLET PO SCH (06:00)
[2018-12-11] MEDS: METHADONE 40 MG, METHADONE 30 MG PO SCH (06:47)
[2018-12-11] MEDS ORDERED: hydrOXYzine PAMOATE 25 MG CAPSULE (FP) PO PRN (06:57)
[2018-12-11] MEDS: RANITIDINE HCL 150 MG TABLET (FP) PO SCH ×2 (09:55→21:11)
[2018-12-11] MEDS: NICOTINE 14 MG/24 HOURS TOPICAL PATCH TD SCH (09:55)
[2018-12-11] MEDS: PRENATAL VITAMINS W/ FOLIC ACID TABLET (FP) PO SCH (09:55)
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
[2018-12-11] MEDS ORDERED: FLU VACCINE QUAD 60 MCG/0.5 ML (MDV 19-20) IM ONE (12:18)
[2018-12-11 14:00] LABS: URINE APPEARANCE CLEAR; URINE BILIRUBIN NEGATIVE (NEGATIVE); URINE COLOR YELLOW; URINE GLUCOSE (UA) NEGATIVE (NEGATIVE); URINE KETONE NEGATIVE (NEGATIVE); URINE LEUK ESTERASE NEGATIVE (NEGATIVE); URINE NITRITE NEGATIVE (NEGATIVE); URINE PROTEIN NEGATIVE (NEGATIVE)
[2018-12-11] MEDS: hydrOXYzine PAMOATE 50 MG CAPSULE (FP) PO PRN (18:25)
[2018-12-11] MEDS: MELATONIN 5 MG TABLETS PO PRN (21:11)
[2018-12-11] MEDS: THIAMINE HCL 100 MG TABLET (FP) PO SCH (21:11)
[2018-12-12] MEDS ORDERED: METHADONE HCL 10 MG TABLET ONE (03:32)
[2018-12-12] MEDS ORDERED: METHADONE HCL 40 MG DISPERSABLE TABLET ONE (03:32)
[2018-12-12] MEDS: METHADONE 40 MG, METHADONE 30 MG PO SCH (06:33)
[2018-12-12] MEDS: hydrOXYzine PAMOATE 50 MG CAPSULE (FP) PO PRN ×4 (06:33→23:15)
[2018-12-12] MEDS: MAGNESIUM HYDROX 2400MG/30ML ORAL SUSPENSION 30 ML CUP PO PRN (09:41)
[2018-12-12] MEDS: NICOTINE 14 MG/24 HOURS TOPICAL PATCH TD SCH (09:42)
[2018-12-12] MEDS: RANITIDINE HCL 150 MG TABLET (FP) PO SCH ×2 (09:42→21:42)
[2018-12-12] MEDS: PRENATAL VITAMINS W/ FOLIC ACID TABLET (FP) PO SCH (09:42)
[2018-12-12] MEDS: DOCUSATE SODIUM 100 MG CAPSULE (FP) PO SCH ×2 (13:49→21:42)
[2018-12-12] MEDS: MELATONIN 5 MG TABLETS PO PRN (21:42)
[2018-12-12] MEDS: THIAMINE HCL 100 MG TABLET (FP) PO SCH (21:42)
[2018-12-13] MEDS ORDERED: METHADONE HCL 10 MG TABLET ONE (05:58)
[2018-12-13] MEDS ORDERED: METHADONE HCL 40 MG DISPERSABLE TABLET ONE (05:59)
[2018-12-13] MEDS: DOCUSATE SODIUM 100 MG CAPSULE (FP) PO SCH ×3 (06:45→21:39)
[2018-12-13] MEDS: METHADONE 40 MG, METHADONE 30 MG PO SCH (06:46)
[2018-12-13] MEDS: hydrOXYzine PAMOATE 50 MG CAPSULE (FP) PO PRN ×3 (06:46→21:39)
[2018-12-13] MEDS: PRENATAL VITAMINS W/ FOLIC ACID TABLET (FP) PO SCH (09:52)
[2018-12-13] MEDS: NICOTINE 14 MG/24 HOURS TOPICAL PATCH TD SCH (09:52)
[2018-12-13] MEDS: RANITIDINE HCL 150 MG TABLET (FP) PO SCH (09:53)
[2018-12-13] MEDS ORDERED: COLLOIDAL OATMEAL 1 BAR EACH TP PRN (11:37)
[2018-12-13] MEDS: LIDOCAINE 5% TOPICAL PATCH TP SCH (11:45)
[2018-12-13] MEDS: PANTOPRAZOLE 40 MG TABLET (FP) PO SCH (11:45)
[2018-12-13] MEDS: CYCLOBENZAPRINE HCL 5 MG TABLET PO SCH ×2 (13:55→21:39)
[2018-12-13] MEDS: THIAMINE HCL 100 MG TABLET (FP) PO SCH (21:39)
[2018-12-13] MEDS: MELATONIN 5 MG TABLETS PO PRN (21:40)
[2018-12-13] MEDS: METHYL SALICYLATE/MENTHOL OINT 30 GM TUBE TP SCH (21:41)
[2018-12-13] MEDS: LIDOCAINE PATCH REMOVAL MC SCH (21:41)
[2018-12-14] MEDS ORDERED: METHADONE HCL 40 MG DISPERSABLE TABLET ONE (04:08)
[2018-12-14] MEDS ORDERED: METHADONE HCL 10 MG TABLET ONE (04:08)
[2018-12-14] MEDS: METHADONE 40 MG, METHADONE 30 MG PO SCH (06:57)
[2018-12-14] MEDS: CYCLOBENZAPRINE HCL 5 MG TABLET PO SCH ×3 (06:58→21:44)
[2018-12-14] MEDS: hydrOXYzine PAMOATE 50 MG CAPSULE (FP) PO PRN ×3 (06:58→21:44)
[2018-12-14] MEDS: DOCUSATE SODIUM 100 MG CAPSULE (FP) PO SCH ×3 (06:58→21:44)
[2018-12-14] MEDS: PRENATAL VITAMINS W/ FOLIC ACID TABLET (FP) PO SCH (09:48)
[2018-12-14] MEDS: METHYL SALICYLATE/MENTHOL OINT 30 GM TUBE TP SCH (09:48)
[2018-12-14] MEDS: PANTOPRAZOLE 40 MG TABLET (FP) PO SCH (09:48)
[2018-12-14] MEDS: NICOTINE 14 MG/24 HOURS TOPICAL PATCH TD SCH (09:49)
[2018-12-14] MEDS: LIDOCAINE 5% TOPICAL PATCH TP SCH (09:50)
[2018-12-14] MEDS: ESCITALOPRAM OXALATE 20 MG TABLET (FP) PO SCH (09:51)
[2018-12-14] MEDS: TOLNAFTATE 1% POWDER 45 GM POW TP SCH ×2 (10:40→21:45)
[2018-12-14] MEDS: GABAPENTIN 300 MG CAPSULE (FP) PO SCH ×2 (13:47→21:44)
--- NOTE | 2018-12-14 14:41 | PN ---
S Progress Note Note: Patient reports sleeping poorly despite taking Melatonin 10 mg/hs prn. Hypnotic properties of Belsomra discussed with patient and she agreed to try it
[2018-12-14] MEDS: THIAMINE HCL 100 MG TABLET (FP) PO SCH (21:43)
[2018-12-14] MEDS: MELATONIN 5 MG TABLETS PO PRN (21:44)
[2018-12-14] MEDS: traZODone HCL 50 MG TABLET (FP) PO SCH (21:45)
[2018-12-14] MEDS: LIDOCAINE PATCH REMOVAL MC SCH (21:45)
[2018-12-14] MEDS ORDERED: SUVOREXANT 10 MG TABLET PO PRN (22:00)
[2018-12-15] MEDS ORDERED: METHADONE HCL 10 MG TABLET ONE (03:17)
[2018-12-15] MEDS ORDERED: METHADONE HCL 40 MG DISPERSABLE TABLET ONE (03:17)
[2018-12-15] MEDS: METHADONE 40 MG, METHADONE 30 MG PO SCH (06:25)
[2018-12-15] MEDS: DOCUSATE SODIUM 100 MG CAPSULE (FP) PO SCH ×3 (06:26→21:44)
[2018-12-15] MEDS: CYCLOBENZAPRINE HCL 5 MG TABLET PO SCH ×3 (06:26→21:44)
[2018-12-15] MEDS: GABAPENTIN 300 MG CAPSULE (FP) PO SCH ×3 (06:26→21:44)
[2018-12-15] MEDS ORDERED: PT OWN MED DRAWER 7, Y5N ONE (08:50)
[2018-12-15] MEDS: LIDOCAINE 5% TOPICAL PATCH TP SCH (09:59)
[2018-12-15] MEDS: METHYL SALICYLATE/MENTHOL OINT 30 GM TUBE TP SCH (10:00)
[2018-12-15] MEDS: NICOTINE 14 MG/24 HOURS TOPICAL PATCH TD SCH (10:00)
[2018-12-15] MEDS: TOLNAFTATE 1% POWDER 45 GM POW TP SCH ×2 (10:00→21:45)
[2018-12-15] MEDS: PANTOPRAZOLE 40 MG TABLET (FP) PO SCH (10:00)
[2018-12-15] MEDS: PRENATAL VITAMINS W/ FOLIC ACID TABLET (FP) PO SCH (10:00)
[2018-12-15] MEDS: ESCITALOPRAM OXALATE 20 MG TABLET (FP) PO SCH (10:00)
[2018-12-15] MEDS: hydrOXYzine PAMOATE 50 MG CAPSULE (FP) PO PRN ×3 (10:02→21:44)
[2018-12-15] MEDS: traZODone HCL 50 MG TABLET (FP) PO SCH (21:44)
[2018-12-15] MEDS: LIDOCAINE PATCH REMOVAL MC SCH (21:44)
[2018-12-15] MEDS: THIAMINE HCL 100 MG TABLET (FP) PO SCH (21:45)
[2018-12-16] MEDS ORDERED: METHADONE HCL 40 MG DISPERSABLE TABLET ONE (03:24)
[2018-12-16] MEDS ORDERED: METHADONE HCL 10 MG TABLET ONE (03:24)
[2018-12-16] MEDS: METHADONE 40 MG, METHADONE 30 MG PO SCH (06:22)
[2018-12-16] MEDS: DOCUSATE SODIUM 100 MG CAPSULE (FP) PO SCH ×3 (06:23→22:07)
[2018-12-16] MEDS: GABAPENTIN 300 MG CAPSULE (FP) PO SCH ×3 (06:23→22:07)
[2018-12-16] MEDS: CYCLOBENZAPRINE HCL 5 MG TABLET PO SCH ×3 (06:23→22:07)
[2018-12-16] MEDS: ESCITALOPRAM OXALATE 20 MG TABLET (FP) PO SCH (09:31)
[2018-12-16] MEDS: METHYL SALICYLATE/MENTHOL OINT 30 GM TUBE TP SCH (09:31)
[2018-12-16] MEDS: NICOTINE 14 MG/24 HOURS TOPICAL PATCH TD SCH (09:32)
[2018-12-16] MEDS: LIDOCAINE 5% TOPICAL PATCH TP SCH (09:32)
[2018-12-16] MEDS: PANTOPRAZOLE 40 MG TABLET (FP) PO SCH (09:33)
[2018-12-16] MEDS: TOLNAFTATE 1% POWDER 45 GM POW TP SCH ×2 (09:33→22:08)
[2018-12-16] MEDS: PRENATAL VITAMINS W/ FOLIC ACID TABLET (FP) PO SCH (09:33)
[2018-12-16] MEDS: hydrOXYzine PAMOATE 50 MG CAPSULE (FP) PO PRN ×3 (09:34→22:08)
[2018-12-16] MEDS: traZODone HCL 50 MG TABLET (FP) PO SCH (22:07)
[2018-12-16] MEDS: LIDOCAINE PATCH REMOVAL MC SCH (22:07)
[2018-12-16] MEDS: THIAMINE HCL 100 MG TABLET (FP) PO SCH (22:08)
[2018-12-17] MEDS ORDERED: METHADONE HCL 40 MG DISPERSABLE TABLET ONE (05:54)
[2018-12-17] MEDS ORDERED: METHADONE HCL 10 MG TABLET ONE (05:54)
[2018-12-17] MEDS: DOCUSATE SODIUM 100 MG CAPSULE (FP) PO SCH ×3 (06:46→21:40)
[2018-12-17] MEDS: METHADONE 40 MG, METHADONE 30 MG PO SCH ×2 (06:46→08:10)
[2018-12-17] MEDS: CYCLOBENZAPRINE HCL 5 MG TABLET PO SCH ×3 (06:46→21:39)
[2018-12-17] MEDS: GABAPENTIN 300 MG CAPSULE (FP) PO SCH ×3 (06:46→21:39)
[2018-12-17] MEDS: hydrOXYzine PAMOATE 50 MG CAPSULE (FP) PO PRN ×3 (06:47→21:39)
[2018-12-17] MEDS: PANTOPRAZOLE 40 MG TABLET (FP) PO SCH (09:37)
[2018-12-17] MEDS: ESCITALOPRAM OXALATE 20 MG TABLET (FP) PO SCH (09:37)
[2018-12-17] MEDS: TOLNAFTATE 1% POWDER 45 GM POW TP SCH ×2 (09:38→23:10)
[2018-12-17] MEDS: PRENATAL VITAMINS W/ FOLIC ACID TABLET (FP) PO SCH (09:38)
[2018-12-17] MEDS: NICOTINE 14 MG/24 HOURS TOPICAL PATCH TD SCH (09:38)
[2018-12-17] MEDS: METHYL SALICYLATE/MENTHOL OINT 30 GM TUBE TP SCH (09:38)
[2018-12-17] MEDS: LIDOCAINE 5% TOPICAL PATCH TP SCH (09:38)
[2018-12-17] MEDS: traZODone HCL 50 MG TABLET (FP) PO SCH (21:39)
[2018-12-17] MEDS: THIAMINE HCL 100 MG TABLET (FP) PO SCH (21:39)
[2018-12-17] MEDS: LIDOCAINE PATCH REMOVAL MC SCH (21:40)
[2018-12-18] MEDS ORDERED: METHADONE HCL 10 MG TABLET ONE (05:46)
[2018-12-18] MEDS ORDERED: METHADONE HCL 40 MG DISPERSABLE TABLET ONE (05:46)
[2018-12-18] MEDS: METHADONE 40 MG, METHADONE 30 MG PO SCH (05:49)
[2018-12-18] MEDS: hydrOXYzine PAMOATE 50 MG CAPSULE (FP) PO PRN ×4 (06:19→21:30)
[2018-12-18] MEDS: CYCLOBENZAPRINE HCL 5 MG TABLET PO SCH ×3 (06:20→21:31)
[2018-12-18] MEDS: GABAPENTIN 300 MG CAPSULE (FP) PO SCH ×3 (06:20→21:30)
[2018-12-18] MEDS: DOCUSATE SODIUM 100 MG CAPSULE (FP) PO SCH ×3 (06:20→21:30)
[2018-12-18] MEDS ORDERED: PT OWN MED DRAWER 7, Y5N ONE (08:48)
[2018-12-18] MEDS: LIDOCAINE 5% TOPICAL PATCH TP SCH (09:42)
[2018-12-18] MEDS: PRENATAL VITAMINS W/ FOLIC ACID TABLET (FP) PO SCH (09:43)
[2018-12-18] MEDS: NICOTINE 14 MG/24 HOURS TOPICAL PATCH TD SCH (09:43)
[2018-12-18] MEDS: PANTOPRAZOLE 40 MG TABLET (FP) PO SCH (09:43)
[2018-12-18] MEDS: ESCITALOPRAM OXALATE 20 MG TABLET (FP) PO SCH (09:43)
[2018-12-18] MEDS: METHYL SALICYLATE/MENTHOL OINT 30 GM TUBE TP SCH (09:44)
[2018-12-18] MEDS: TOLNAFTATE 1% POWDER 45 GM POW TP SCH ×2 (09:44→21:31)
[2018-12-18] MEDS: THIAMINE HCL 100 MG TABLET (FP) PO SCH (21:30)
[2018-12-18] MEDS: traZODone HCL 50 MG TABLET (FP) PO SCH (21:30)
[2018-12-18] MEDS: LIDOCAINE PATCH REMOVAL MC SCH (21:31)
[2018-12-19] MEDS ORDERED: METHADONE HCL 10 MG TABLET ONE (05:43)
[2018-12-19] MEDS ORDERED: METHADONE HCL 40 MG DISPERSABLE TABLET ONE (05:44)
[2018-12-19] MEDS ORDERED: METHADONE HCL 10 MG TABLET PO SCH (06:00)
[2018-12-19] MEDS: hydrOXYzine PAMOATE 50 MG CAPSULE (FP) PO PRN ×4 (06:16→21:26)
[2018-12-19] MEDS: CYCLOBENZAPRINE HCL 5 MG TABLET PO SCH ×3 (06:17→21:26)
[2018-12-19] MEDS: GABAPENTIN 300 MG CAPSULE (FP) PO SCH ×3 (06:17→21:26)
[2018-12-19] MEDS: METHADONE 40 MG, METHADONE 30 MG PO SCH (06:17)
[2018-12-19] MEDS: DOCUSATE SODIUM 100 MG CAPSULE (FP) PO SCH ×3 (06:17→21:26)
[2018-12-19] MEDS ORDERED: PT OWN MED DRAWER 7, Y5N ONE (08:56)
[2018-12-19] MEDS: LIDOCAINE 5% TOPICAL PATCH TP SCH (09:44)
[2018-12-19] MEDS: METHYL SALICYLATE/MENTHOL OINT 30 GM TUBE TP SCH (09:44)
[2018-12-19] MEDS: PRENATAL VITAMINS W/ FOLIC ACID TABLET (FP) PO SCH (09:45)
[2018-12-19] MEDS: PANTOPRAZOLE 40 MG TABLET (FP) PO SCH (09:45)
[2018-12-19] MEDS: TOLNAFTATE 1% POWDER 45 GM POW TP SCH ×2 (09:45→21:27)
[2018-12-19] MEDS: ESCITALOPRAM OXALATE 20 MG TABLET (FP) PO SCH (09:45)
[2018-12-19] MEDS: NICOTINE 14 MG/24 HOURS TOPICAL PATCH TD SCH (09:45)
[2018-12-19] MEDS: THIAMINE HCL 100 MG TABLET (FP) PO SCH (21:26)
[2018-12-19] MEDS: traZODone HCL 50 MG TABLET (FP) PO SCH (21:26)
[2018-12-19] MEDS: LIDOCAINE PATCH REMOVAL MC SCH (21:27)
[2018-12-20] MEDS ORDERED: METHADONE HCL 40 MG DISPERSABLE TABLET ONE (03:24)
[2018-12-20] MEDS ORDERED: METHADONE HCL 10 MG TABLET ONE (03:24)
[2018-12-20] MEDS: METHADONE 40 MG, METHADONE 30 MG PO SCH (06:14)
[2018-12-20] MEDS: CYCLOBENZAPRINE HCL 5 MG TABLET PO SCH ×3 (06:15→21:14)
[2018-12-20] MEDS: DOCUSATE SODIUM 100 MG CAPSULE (FP) PO SCH ×3 (06:15→21:14)
[2018-12-20] MEDS: GABAPENTIN 300 MG CAPSULE (FP) PO SCH ×3 (06:15→21:14)
[2018-12-20] MEDS ORDERED: PT OWN MED DRAWER 7, Y5N ONE (08:38)
[2018-12-20] MEDS: ESCITALOPRAM OXALATE 20 MG TABLET (FP) PO SCH (10:09)
[2018-12-20] MEDS: LIDOCAINE 5% TOPICAL PATCH TP SCH (10:09)
[2018-12-20] MEDS: METHYL SALICYLATE/MENTHOL OINT 30 GM TUBE TP SCH (10:09)
[2018-12-20] MEDS: NICOTINE 14 MG/24 HOURS TOPICAL PATCH TD SCH (10:10)
[2018-12-20] MEDS: PRENATAL VITAMINS W/ FOLIC ACID TABLET (FP) PO SCH (10:11)
[2018-12-20] MEDS: PANTOPRAZOLE 40 MG TABLET (FP) PO SCH (10:11)
[2018-12-20] MEDS: TOLNAFTATE 1% POWDER 45 GM POW TP SCH ×2 (10:11→21:16)
[2018-12-20] MEDS: hydrOXYzine PAMOATE 50 MG CAPSULE (FP) PO PRN ×3 (10:12→21:15)
[2018-12-20] MEDS: traZODone HCL 50 MG TABLET (FP) PO SCH (21:14)
[2018-12-20] MEDS: THIAMINE HCL 100 MG TABLET (FP) PO SCH (21:15)
[2018-12-20] MEDS: LIDOCAINE PATCH REMOVAL MC SCH (21:17)
[2018-12-21] MEDS ORDERED: METHADONE HCL 10 MG TABLET ONE (03:22)
[2018-12-21] MEDS ORDERED: METHADONE HCL 40 MG DISPERSABLE TABLET ONE (03:22)
[2018-12-21] MEDS: METHADONE 40 MG, METHADONE 30 MG PO SCH (06:17)
[2018-12-21] MEDS: GABAPENTIN 300 MG CAPSULE (FP) PO SCH ×3 (06:18→21:33)
[2018-12-21] MEDS: DOCUSATE SODIUM 100 MG CAPSULE (FP) PO SCH ×3 (06:18→21:36)
[2018-12-21] MEDS: CYCLOBENZAPRINE HCL 5 MG TABLET PO SCH ×3 (06:18→21:33)
[2018-12-21] MEDS ORDERED: PT OWN MED DRAWER 7, Y5N ONE ×3 (08:35→19:29)
[2018-12-21] MEDS: LIDOCAINE 5% TOPICAL PATCH TP SCH (10:09)
[2018-12-21] MEDS: NICOTINE 14 MG/24 HOURS TOPICAL PATCH TD SCH (10:10)
[2018-12-21] MEDS: PRENATAL VITAMINS W/ FOLIC ACID TABLET (FP) PO SCH (10:10)
[2018-12-21] MEDS: ESCITALOPRAM OXALATE 20 MG TABLET (FP) PO SCH (10:10)
[2018-12-21] MEDS: METHYL SALICYLATE/MENTHOL OINT 30 GM TUBE TP SCH (10:10)
[2018-12-21] MEDS: PANTOPRAZOLE 40 MG TABLET (FP) PO SCH (10:10)
[2018-12-21] MEDS: TOLNAFTATE 1% POWDER 45 GM POW TP SCH ×2 (10:12→21:32)
[2018-12-21] MEDS: hydrOXYzine PAMOATE 50 MG CAPSULE (FP) PO PRN ×3 (10:12→21:35)
--- NOTE | 2018-12-21 12:39 | DS ---
[facility] Rehab Discharge Summary - [facility] Rehab Discharge Summary Admission Date: 12/10/18 Discharge Date: 12/22/18 - History Present History: Alcohol dependence, MMTP, Opioid dependence Pertinent Past History: artur is a 43 year old woman who completed detox and was scheduled to go to [facility] for rehab. According to patient, she was not picked up timely and was later told there are no beds at [facility] for her. She was admitted to [facility] rehab. PHMx: GERD, HEP C, ETOH use, Bipolar Disease, Lower Back Pain, Liver Cirrhosis - Discharge Physical Exam Vital Signs: Vital Signs Temperature 98.2 F 12/21/18 06:55 Pulse Rate 72 12/21/18 06:55 Respiratory Rate 18 12/21/18 06:55 Blood Pressure 132/84 12/21/18 06:55 O2 Sat by Pulse Oximetry (%) Pertinent Admission Physical Exam Findings: Physical General Appearance: Apparent Distress HEENTM: Yes: EOMI, Hearing grossly Normal, LUNGS: Lungs Clear, Neck: Supple Cardiology: S1 S2 Abdominal: +Bowel Sounds, Soft, Tenderness (in the epigastric area) Musculoskeletal: Full Range of Motion, Neurological: tube draw helper II-XII NML intact, - Treatment Discharge Condition: Outpatient referral accepted (Medically stable for discharge. Patient will go to [facility] at [facility] Hospital Course: patient attended groups, was adherent to her treatment plan and medication regimen. Was seen by psychiatry. - Medication Discharge Medications: Ambulatory Orders Methadone [Dolophine -] 70 mg PO DAILY 01/11/18 Escitalopram Oxalate [Lexapro -] 10 mg PO DAILY #30 tablet 01/24/18 Trazodone HCl 150 mg PO HS #30 tablet 01/24/18 hydrOXYzine PAMOATE [Vistaril -] 50 mg PO TID #90 capsule 01/24/18 Multivitamins [Tab-A-Vit -] 1 tab PO DAILY 12/10/18 Docusate Sodium [Colace] 100 mg PO TID #14 capsule 12/21/18 Escitalopram Oxalate [Lexapro -] 20 mg PO DAILY #30 tablet 12/21/18 Famotidine 20 mg PO BID #14 tablet 12/21/18 Folic Acid 1 mg PO DAILY #14 tablet 12/21/18 Gabapentin [Neurontin -] 300 mg PO Q8H #20 capsule 12/21/18 Gabapentin [Neurontin -] 300 mg PO TID #90 capsule 12/21/18 Propranolol HCl 20 mg PO BID #20 tablet 12/21/18 Thiamine HCl [Vitamin B-1] 100 mg PO DAILY #14 tablet 12/21/18 Trazodone HCl 150 mg PO HS #30 tablet 12/21/18 - Medication-Assisted Treatment (MAT) Medication-Assisted Treatment (MAT): Yes MAT Follow-up Referral: MMTP - Discharge Instructions Diet, activity, other medical instructions: Diet: as tolerated Activity: as tolerated Other medical instructions: Please follow up with referral. - Diagnosis (1) Methadone maintenance therapy patient Current Visit: Yes Status: Chronic (2) Alcohol dependence Current Visit: No Status: Chronic Qualifiers: Substance use status: with intoxication Complication of substance-induced condition: uncomplicated Qualified Code(s): F10.220 - Alcohol dependence with intoxication, uncomplicated - Follow-up Referral Minutes to complete discharge: 20 - AMA Did Patient Leave Against Medical Advice: No
--- NOTE | 2018-12-21 13:42 | PN ---
[facility] Progress Note Note: Patient is scheduled for discharge tomorrow. Scripts for 30 days supply of medications(Lexapro 20 mg/day, Gabapentin 300 mg/tid, Trazadone 150 mg/hs) will electronically transmitted to [facility] at [address] [place] [id number]
[2018-12-21] MEDS: traZODone HCL 50 MG TABLET (FP) PO SCH (21:33)
[2018-12-21] MEDS: THIAMINE HCL 100 MG TABLET (FP) PO SCH (21:33)
[2018-12-21] MEDS: LIDOCAINE PATCH REMOVAL MC SCH (22:32)
[2018-12-22] MEDS ORDERED: METHADONE HCL 40 MG DISPERSABLE TABLET ONE (03:26)
[2018-12-22] MEDS ORDERED: METHADONE HCL 10 MG TABLET ONE (03:26)
[2018-12-22] MEDS: DOCUSATE SODIUM 100 MG CAPSULE (FP) PO SCH (06:32)
[2018-12-22] MEDS: CYCLOBENZAPRINE HCL 5 MG TABLET PO SCH (06:32)
[2018-12-22] MEDS: GABAPENTIN 300 MG CAPSULE (FP) PO SCH (06:32)
[2018-12-22] MEDS: METHADONE 40 MG, METHADONE 30 MG PO SCH (06:32)
[2018-12-22 07:11] VITALS: BP 135/89; PULSE 68; TEMP 97.9
[2018-12-22] MEDS ORDERED: PT OWN MED DRAWER 7, Y5N ONE (08:39)
[2018-12-22] MEDS: PANTOPRAZOLE 40 MG TABLET (FP) PO SCH (09:12)
[2018-12-22] MEDS: ESCITALOPRAM OXALATE 20 MG TABLET (FP) PO SCH (09:12)
[2018-12-22] MEDS: PRENATAL VITAMINS W/ FOLIC ACID TABLET (FP) PO SCH (09:12)
[2018-12-22] MEDS: hydrOXYzine PAMOATE 50 MG CAPSULE (FP) PO PRN (09:13)
[2018-12-22] MEDS: METHYL SALICYLATE/MENTHOL OINT 30 GM TUBE TP SCH (09:15)
[2018-12-22] MEDS: NICOTINE 14 MG/24 HOURS TOPICAL PATCH TD SCH (09:16)
[2018-12-22] MEDS: TOLNAFTATE 1% POWDER 45 GM POW TP SCH (09:16)
[2018-12-22] MEDS: LIDOCAINE 5% TOPICAL PATCH TP SCH (09:17)
== END 2018-12-22 09:16 | disposition home or self-care (01) | DRG 772 ==
LOC: YASAS 09:26 → Y3E 12:30
PROVIDERS: ADMIT Neuromusculoskeletal Medicine & OMM; ATTEND Neuromusculoskeletal Medicine & OMM
PROC: HZ42ZZZ Group Counseling for Substance Abuse Treatment, Cognitive-Behavioral (ICD-10-PCS; principal; 2018-12-10)
DX: F10.20 Alcohol dependence, uncomplicated (principal); F11.20 Opioid dependence, uncomplicated; F13.20 Sedative, hypnotic or anxiolytic dependence, uncomplicated; F17.210 Nicotine dependence, cigarettes, uncomplicated; F31.81 Bipolar II disorder; F19.280 Other psychoactive substance dependence with psychoactive substance-induced anxiety disorder; F19.282 Other psychoactive substance dependence with psychoactive substance-induced sleep disorder; K21.9 Gastro-esophageal reflux disease without esophagitis; K70.30 Alcoholic cirrhosis of liver without ascites; B19.20 Unspecified viral hepatitis C without hepatic coma; M54.5 Low back pain; G89.29 Other chronic pain; Z87.19 Personal history of other diseases of the digestive system; Z87.442 Personal history of urinary calculi
CPT/HCPCS: 81003; 81025; Q2036

== ENCOUNTER 2019-02-04 10:46 | Inpatient (IN) | payer OTHER ==
[2019-02-04 12:09] VITALS: BMI 23.6
--- NOTE | 2019-02-04 13:25 | HP ---
CIWA Score Nausea/Vomitin-Mild Nausea/No Vomiting Muscle Tremors: 2 Anxiety: 3 Agitation: 3 Paroxysmal Sweats: No Perspiration Orientation: 1-Uncertain about Date Tacttile Disturbances: 1-Very Mild Itch/Numbness Auditory Disturbances: 0-None Visual Disturbances: 0-None Headache: 2-Mild CIWA-Ar Total Score: 13 - Admission Criteria OASAS Guidelines: Admission for Medically Managed Detox: Requires at least one of the followin. CIWA greater than 12 2. Seizures within the past 24 hours 3. Delirium tremens within the past 24 hours 4. Hallucinations within the past 24 hours 5. Acute intervention needed for co occurring medical disorder 6. Acute intervention needed for co occurring psychiatric disorder 7. Severe withdrawal that cannot be handled at a lower level of care (continued vomiting, continued diarrhea, abnormal vital signs) requiring intravenous medication and/or fluids 8. Admitting History and Physical - Admission Chief Complaint: i need help to stop drinking alcohol cocaine,mmtp History of Present Illness: this 44 years old female with alcohol,cocaine dependence,mmtp 70 mgs/day, seeking detox, seizure last 5 months ago syncope alcohol related,last detox [facility] 12/05/18 to 12/10/18 [facility]hab [facility] 12/10/18 to 12/22/18 no significant period of sobriety nicotine dependence 5 cigarette History Source: Patient Limitations to Obtaining History: No Limitations - Past Medical History Gastrointestinal: Yes: Other (history of pancreatitis) Hepatobiliary: Yes: Hepatitis C Renal/: Yes: Renal Failure ...LMP: 01/11/19 ...: No ...: 5 ...Para: 5 Psych: Yes: Bipolar - Smoking History Smoking history: Current every day smoker Have you smoked in the past 12 months: Yes Aproximately how many cigarettes per day: 5 - Alcohol/Substance Use Hx Alcohol Use: Yes - Social History Usual Living Arrangement: Yes: With Spouse 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 living with ,smoke,insomnia,bipolar disorder,. seizure,syncope, insomnia Admission ROS [facility] - HPI Chief Complaint: i need help to stop drinking alcohol,cocaine,mmtp 70 mgs/day,last medicted today ,has bottle to take home Allergies/Adverse Reactions: Allergies Allergy/AdvReac Type Severity Reaction Status Date / Time No Known Allergies Allergy Verified 02/04/19 11:55 History of Present Illness: this 44 years old female with alcohol,cocaine dependence,mmtp 70 mgs/day,last medicated today, has bottle to take home seizure last 5 months ago syncope alcohol related bipolar disorder no suicidal,no homicidal nicotine dependence - Ebola screening Have you traveled outside of the country in the last 21 days: No (N) Have you had contact with anyone from an Ebola affected area: No Do you have a fever: No - Review of Systems Constitutional: Night Sweats EENT: reports: Tearing, Nose Congestion Respiratory: reports: No Symptoms reported Cardiac: reports: No Symptoms Reported GI: reports: Nausea, Poor Appetite : reports: No Symptoms Reported Musculoskeletal: reports: Back Pain, Muscle Pain Integumentary: reports: Dryness Neuro: reports: Headache, Seizure, Tremors Endocrine: reports: No Symptoms Reported Hematology: reports: No Symptoms Reported Psychiatric: reports: No Sypmtoms Reported, Judgement Intact, Mood/Affect Appropiate, Orientated x3, other (bipolar disorder) Patient History - Patient Medical History Hx Anemia: No Hx Asthma: Yes Hx Chronic Obstructive Pulmonary Disease (COPD): No Hx Cancer: No Hx Cardiac Disorders: No Hx Congestive Heart Failure: No Hx Hypertension: No Hx Hypercholesterolemia: No Hx Pacemaker: No HX Cerebrovascular Accident: No Hx Seizures: No Hx Dementia: No Hx Diabetes: No Hx Gastrointestinal Disorders: Yes (GERD) Hx Liver Disease: Yes (CIRRHOSIS) Hx Genitourinary Disorders: No Hx Sexually Transmitted Disorders: No Hx Renal Disease (ESRD): No Hx Thyroid Disease: No Hx Human Immunodeficiency Virus (HIV): No (last 11/10 negative) Hx Hepatitis C: No Hx Depression: Yes Hx Suicide Attempt: Yes (20yrs ago with pills) Hx Bipolar Disorder: Yes Hx Schizophrenia: No Other Medical History: no suicidal,no homicidal - Patient Surgical History Past Surgical History: Yes Other Surgical History: ,s/p tubal ligation Anesthesia Reaction: No - PPD History Previous Implant?: Yes Documented Results: Negative w/o proof Date: 01/10/18 Results: 0mm PPD to be Administered?: Yes - Reproductive History Patient is a Female of Child Bearing Age (11 -55 yrs old): Yes Last Menstrual Period: 01/11/19 Patient : No - Smoking Cessation Smoking history: Current every day smoker Have you smoked in the past 12 months: Yes Aproximately how many cigarettes per day: 5 Cigars Per Day: 0 Hx Chewing Tobacco Use: No Initiated information on smoking cessation: Yes 'Breaking Loose' booklet given: 02/04/19 - Substance & Tx. History Hx Alcohol Use: Yes Hx Substance Use: Yes Substance Use Type: Alcohol, Cocaine Hx Substance Use Treatment: Yes ([facility] 12/05/18 to 12/10/18) - Substances abused Benzodiazepine (Klonopin) Substance route: Oral Frequency: Daily Amount used: 3 sticks Age of first use: 42 Date of last use: 02/04/19 Alprazolam (Xanax) Substance route: Oral Frequency: Daily Amount used: 15 tablets Age of first use: 41 Date of last use: 11/18/18 Alcohol Substance route: Oral Frequency: Daily Amount used: half gallon of pure alcohol.vodka Age of first use: 41 Date of last use: 11/19/18 Heroin Substance route: Injection Frequency: Daily Amount used: 8 bags Age of first use: 28 Date of last use: 11/17/18 Cocaine Substance route: Smoking Frequency: 1-3 times last 30 days Amount used: 20$ Age of first use: 28 Date of last use: 02/03/19 Admission Physical Exam [facility] - Vital Signs Vital Signs: Vital Signs - 24 hr 02/04/19 12:05 Temperature 98.4 F Pulse Rate 88 Respiratory 18 Rate Blood Pressure 136/94 - Physical General Appearance: Yes: Moderate Distress, Tremorous, Irritable, Sweating, Anxious HEENTM: Yes: Normal ENT Inspection, ROGERIO, Pharynx Normal Respiratory: Yes: Lungs Clear, Normal Breath Sounds, No Respiratory Distress Neck: Yes: Within Normal Limits, Supple, Trachea in good position Breast: Yes: Breast Exam Deferred Cardiology: Yes: Within Normal Limits, Regular Rhythm, Regular Rate, S1, S2 Abdominal: Yes: Within Normal Limits, Normal Bowel Sounds, Non Tender, Soft Genitourinary: Yes: Within Normal Limits Back: Yes: Muscle Spasm Musculoskeletal: Yes: Back pain, Muscle Pain Extremities: Yes: Tremors 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, Fully Oriented, Alert, Motor Strength 5/5 Integumentary: Yes: Dry Lymphatic: Yes: Within Normal Limits - Diagnostic (1) Alcohol dependence with uncomplicated withdrawal Current Visit: Yes Status: Acute (2) History of pancreatitis Current Visit: No Status: Resolved (3) Alcohol intoxication Current Visit: Yes Status: Acute (4) Seizure Current Visit: Yes Status: Acute (5) Syncope Current Visit: Yes Status: Acute (6) Nicotine dependence Current Visit: Yes Status: Acute (7) Bipolar disorder Current Visit: Yes Status: Acute (8) Methadone maintenance therapy patient Current Visit: Yes Status: Acute Cleared for Admission S - Detox or Rehab S Level of Care: Medically Managed (ativan regimen) Breathalyzer - Breathalyzer Breathalyzer: 0.192 Urine Drug Screen - Test Device Lot number: [id number] Expiration date: 09/21/20 - Control Is test valid?: Yes - Results Drug screen NEGATIVE: No Urine drug screen results: NITA-Cocaine, MTD-Methadone, BZO-Benzodiazepines Inpatient Rehab Admission - Rehab Decision to Admit Inpatient rehab admission?: No
[2019-02-04] MEDS ORDERED: MENTHOL/PHENOL 1 EACH UD MM PRN (13:45)
[2019-02-04] MEDS ORDERED: MAGNESIUM CITRATE 300 ML BOTTLE PO PRN (13:45)
[2019-02-04] MEDS ORDERED: MAG HYDROX/AL HYDROX/SIMETH 30 ML UNIT-DOSE CUP PO PRN (13:45)
[2019-02-04] MEDS ORDERED: BISMUTH SUBSALICYLATE 524 MG/30 ML UD PO PRN (13:45)
[2019-02-04] MEDS ORDERED: hydrOXYzine PAMOATE 25 MG CAPSULE (FP) PO PRN (13:45)
[2019-02-04] MEDS ORDERED: LORazepam 1 MG TABLET PO PRN (13:45)
[2019-02-04] MEDS ORDERED: IBUPROFEN 400 MG TABLET (FP) PO PRN (13:45)
[2019-02-04] MEDS ORDERED: ACETAMINOPHEN 325 MG TABLET (FP) PO PRN ×2 (13:45)
[2019-02-04] MEDS: GABAPENTIN 300 MG CAPSULE (FP) PO SCH ×2 (15:34→22:26)
[2019-02-04] MEDS: DOCUSATE SODIUM 100 MG CAPSULE (FP) PO SCH ×2 (15:34→22:26)
[2019-02-04] MEDS: LORazepam 2 MG TABLET PO SCH ×2 (17:41→22:26)
[2019-02-04] MEDS: MAGNESIUM HYDROX 2400MG/30ML ORAL SUSPENSION 30 ML CUP PO PRN (17:42)
[2019-02-04] MEDS: THIAMINE HCL 100 MG TABLET (FP) PO SCH (22:26)
[2019-02-04] MEDS: MELATONIN 5 MG TABLETS PO PRN (22:27)
[2019-02-05] MEDS ORDERED: METHADONE HCL 10 MG TABLET ONE (04:06)
[2019-02-05] MEDS ORDERED: METHADONE HCL 40 MG DISPERSABLE TABLET ONE (04:07)
[2019-02-05] MEDS ORDERED: METHADONE 40 MG, METHADONE 30 MG PO ONE (06:00)
[2019-02-05] MEDS ORDERED: METHADONE HCL 10 MG TABLET PO ONE ×2 (06:00)
[2019-02-05] MEDS: DOCUSATE SODIUM 100 MG CAPSULE (FP) PO SCH ×3 (06:26→22:25)
[2019-02-05] MEDS: LORazepam 2 MG TABLET PO SCH ×4 (06:26→22:25)
[2019-02-05] MEDS: GABAPENTIN 300 MG CAPSULE (FP) PO SCH ×3 (06:26→22:25)
[2019-02-05] MEDS: PRENATAL VITAMINS W/ FOLIC ACID TABLET (FP) PO SCH (10:19)
[2019-02-05] MEDS: FAMOTIDINE 20 MG TABLET PO SCH (10:19)
[2019-02-05] MEDS: NICOTINE 14 MG/24 HOURS TOPICAL PATCH TD SCH (10:19)
[2019-02-05] MEDS: NICOTINE POLACRILEX 2 MG GUM BUC PRN (10:21)
[2019-02-05 11:09] LABS: HEMATOCRIT 39.7 % (32.4-45.2); HEMOGLOBIN 13.3 GM/dL (10.7-15.3); MCH 33.4 pg (25.7-33.7); MCHC 33.6 g/dl (32.0-36.0); MEAN CELL VOLUME 99.5 fl (80-96); MEAN PLT VOLUME 9.1 fl (7.5-11.1); PLATELET COUNT 189 K/MM3 (134-434); RDW 14.6 % (11.6-15.6); WHITE BLOOD COUNT 5.5 K/mm3 (4.0-10.0)
[2019-02-05 11:12] LABS: ALBUMIN 3.1 g/dl (3.4-5.0); BLOOD UREA NITROGEN 6.2 mg/dL (7-18); CALCIUM 8.8 mg/dL (8.5-10.1); CREATININE 0.7 mg/dL (0.55-1.3); POTASSIUM 3.2 mmol/L (3.5-5.1); TOT PROT 6.5 g/dl (6.4-8.2)
[2019-02-05] MEDS ORDERED: POTASSIUM CHLORIDE ORAL LIQUID 20 MEQ/15 ML PO ONE (13:30)
--- NOTE | 2019-02-05 13:33 | PN ---
S CIWA - CIWA Score Nausea/Vomitin-Mild Nausea/No Vomiting Muscle Tremors: 3 Anxiety: 4-Mod. Anxious/Guarded Agitation: 1-Slight > Activity Paroxysmal Sweats: 2 Orientation: 0-Oriented Tacttile Disturbances: 0-None Auditory Disturbances: 0-None Visual Disturbances: 0-None Headache: 1-Very Mild CIWA-Ar Total Score: 12 [facility] Progress Note (SOAP) Subjective: 44 years old female admitted on 02/04/19 for alcohol and benzo withdrawal sx management treating with ativan detox regimen received methadone 70 mg po today feeling better ate breakfast and lunch ambulating on hallway social with peers in day room Objective: 02/05/19 13:29 Vital Signs Temperature 96.2 F L 02/05/19 09:21 Pulse Rate 81 02/05/19 09:21 Respiratory Rate 18 02/05/19 09:21 Blood Pressure 116/84 02/05/19 09:21 O2 Sat by Pulse Oximetry (%) Laboratory Last Values WBC 5.5 K/mm3 (4.0-10.0) 02/05/19 08:00 RBC 4.00 M/mm3 (3.60-5.2) 02/05/19 08:00 Hgb 13.3 GM/dL (10.7-15.3) 02/05/19 08:00 Hct 39.7 % (32.4-45.2) 02/05/19 08:00 MCV 99.5 fl (80-96) H 02/05/19 08:00 MCH 33.4 pg (25.7-33.7) 02/05/19 08:00 MCHC 33.6 g/dl (32.0-36.0) 02/05/19 08:00 RDW 14.6 % (11.6-15.6) 02/05/19 08:00 Plt Count 189 K/MM3 (134-434) 02/05/19 08:00 MPV 9.1 fl (7.5-11.1) 02/05/19 08:00 Sodium 139 mmol/L (136-145) 02/05/19 08:00 Potassium 3.2 mmol/L (3.5-5.1) L 02/05/19 08:00 Chloride 101 mmol/L (98-107) 02/05/19 08:00 Carbon Dioxide 28 mmol/L (21-32) 02/05/19 08:00 Anion Gap 10 MMOL/L (8-16) 02/05/19 08:00 BUN 6.2 mg/dL (7-18) L 02/05/19 08:00 Creatinine 0.7 mg/dL (0.55-1.3) 02/05/19 08:00 Est GFR (CKD-EPI)AfAm 122.13 02/05/19 08:00 Est GFR (CKD-EPI)NonAf 105.37 02/05/19 08:00 Random Glucose 97 mg/dL (74-106) 02/05/19 08:00 Calcium 8.8 mg/dL (8.5-10.1) 02/05/19 08:00 Total Bilirubin 1.0 mg/dL (0.2-1) 02/05/19 08:00 AST 23 U/L (15-37) 02/05/19 08:00 ALT 20 U/L (13-61) 02/05/19 08:00 Alkaline Phosphatase 121 U/L (45-117) H 02/05/19 08:00 Total Protein 6.5 g/dl (6.4-8.2) 02/05/19 08:00 Albumin 3.1 g/dl (3.4-5.0) L 02/05/19 08:00 RPR Titer Nonreactive (NONREACTIVE) 02/05/19 08:00 HIV 1&2 Antibody Screen Negative 02/05/19 08:00 HIV P24 Antigen Negative 02/05/19 08:00 lab noted low K+ 02/05/19 13:31 K+ 40 meq x 1 repeat K= 02/06/19 Assessment: 02/05/19 13:31 alcohol and benzo withdrawal Plan: ativan regimen
[2019-02-05] MEDS: THIAMINE HCL 100 MG TABLET (FP) PO SCH (22:25)
[2019-02-05] MEDS: METHOCARBAMOL 500 MG TABLET PO PRN (22:26)
[2019-02-06] MEDS: LORazepam 1 MG TABLET PO SCH ×4 (06:07→22:17)
[2019-02-06] MEDS: GABAPENTIN 300 MG CAPSULE (FP) PO SCH ×3 (06:07→22:16)
[2019-02-06] MEDS: DOCUSATE SODIUM 100 MG CAPSULE (FP) PO SCH ×3 (06:07→22:16)
[2019-02-06] MEDS: METHOCARBAMOL 500 MG TABLET PO PRN ×2 (06:20→22:17)
[2019-02-06] MEDS: PRENATAL VITAMINS W/ FOLIC ACID TABLET (FP) PO SCH (10:45)
[2019-02-06] MEDS: FAMOTIDINE 20 MG TABLET PO SCH (10:45)
[2019-02-06] MEDS: NICOTINE 14 MG/24 HOURS TOPICAL PATCH TD SCH (10:48)
[2019-02-06] MEDS ORDERED: METHADONE HCL 10 MG TABLET PO ONE (11:26)
[2019-02-06] MEDS ORDERED: METHADONE HCL 10 MG TABLET ONE (11:39)
[2019-02-06] MEDS ORDERED: METHADONE HCL 40 MG DISPERSABLE TABLET ONE (11:41)
[2019-02-06] MEDS ORDERED: METHADONE 40 MG, METHADONE 30 MG PO ONE (11:45)
--- NOTE | 2019-02-06 11:46 | PN ---
[facility] CIWA - CIWA Score Nausea/Vomitin-No Nausea/No Vomiting Muscle Tremors: 3 Anxiety: 4-Mod. Anxious/Guarded Agitation: 1-Slight > Activity Paroxysmal Sweats: 2 Orientation: 0-Oriented Tacttile Disturbances: 0-None Auditory Disturbances: 0-None Visual Disturbances: 0-None Headache: 0-None Present CIWA-Ar Total Score: 10 [facility] Progress Note (SOAP) Subjective: 44 years old female admitted on 02/04/19 for alcohol and benzo withdrawal sx management treating with ativan detox regimen methadone 70 mg po daily verified begin methadone 70mg po daily patient is anxious about pharmacy verification period taking longer than expected emotional assurance that Ms Vicente is going to received methadone 70mg po daily at 6am Objective: 02/06/19 11:45 Vital Signs Temperature 97.6 F 02/06/19 09:22 Pulse Rate 87 02/06/19 09:22 Respiratory Rate 18 02/06/19 09:22 Blood Pressure 96/71 02/06/19 09:22 O2 Sat by Pulse Oximetry (%) Laboratory Last Values WBC 5.5 K/mm3 (4.0-10.0) 02/05/19 08:00 RBC 4.00 M/mm3 (3.60-5.2) 02/05/19 08:00 Hgb 13.3 GM/dL (10.7-15.3) 02/05/19 08:00 Hct 39.7 % (32.4-45.2) 02/05/19 08:00 MCV 99.5 fl (80-96) H 02/05/19 08:00 MCH 33.4 pg (25.7-33.7) 02/05/19 08:00 MCHC 33.6 g/dl (32.0-36.0) 02/05/19 08:00 RDW 14.6 % (11.6-15.6) 02/05/19 08:00 Plt Count 189 K/MM3 (134-434) 02/05/19 08:00 MPV 9.1 fl (7.5-11.1) 02/05/19 08:00 Sodium 139 mmol/L (136-145) 02/05/19 08:00 Potassium 3.5 mmol/L (3.5-5.1) 02/06/19 08:15 Chloride 101 mmol/L (98-107) 02/05/19 08:00 Carbon Dioxide 28 mmol/L (21-32) 02/05/19 08:00 Anion Gap 10 MMOL/L (8-16) 02/05/19 08:00 BUN 6.2 mg/dL (7-18) L 02/05/19 08:00 Creatinine 0.7 mg/dL (0.55-1.3) 02/05/19 08:00 Est GFR (CKD-EPI)AfAm 122.13 02/05/19 08:00 Est GFR (CKD-EPI)NonAf 105.37 02/05/19 08:00 Random Glucose 97 mg/dL (74-106) 02/05/19 08:00 Calcium 8.8 mg/dL (8.5-10.1) 02/05/19 08:00 Total Bilirubin 1.0 mg/dL (0.2-1) 02/05/19 08:00 AST 23 U/L (15-37) 02/05/19 08:00 ALT 20 U/L (13-61) 02/05/19 08:00 Alkaline Phosphatase 121 U/L (45-117) H 02/05/19 08:00 Total Protein 6.5 g/dl (6.4-8.2) 02/05/19 08:00 Albumin 3.1 g/dl (3.4-5.0) L 02/05/19 08:00 RPR Titer Nonreactive (NONREACTIVE) 02/05/19 08:00 HIV 1&2 Antibody Screen Negative 02/05/19 08:00 HIV P24 Antigen Negative 02/05/19 08:00 lab noted Assessment: 02/06/19 11:45 alcohol and benzo withdrawal Plan: ativan regimen
[2019-02-06] MEDS ORDERED: hydrOXYzine PAMOATE 50 MG CAPSULE (FP) PO ONE (12:30)
[2019-02-06 12:48] LABS: EPI CELLS 7.8 /HPF (0-5/HPF); HYALINE CASTS 69 /lpf (0-8); PH,URINE 8.5 (5.0-8.0); URINE APPEARANCE TURBID; URINE BACTERIA >9000 /hpf (NEGATIVE); URINE BILIRUBIN NEGATIVE (NEGATIVE); URINE COLOR YELLOW; URINE GLUCOSE (UA) NEGATIVE (NEGATIVE); URINE KETONE NEGATIVE (NEGATIVE); URINE LEUK ESTERASE 1+ (NEGATIVE); URINE NITRITE NEGATIVE (NEGATIVE); URINE PROTEIN NEGATIVE (NEGATIVE); URINE RBC 4 /hpf (0-4); URINE UROBILINOGEN 0.2 mg/dL (0.2-1.0); URINE WBC 58 /hpf (0-5)
[2019-02-06 14:28] LABS: URINE CRYSTALS PRESENT /hpf
[2019-02-06] MEDS: THIAMINE HCL 100 MG TABLET (FP) PO SCH (22:16)
[2019-02-06] MEDS: MELATONIN 5 MG TABLETS PO PRN (22:17)
[2019-02-07] MEDS ORDERED: LORazepam 0.5 MG TABLET PO PRN
[2019-02-07] MEDS ORDERED: METHADONE HCL 10 MG TABLET ONE (04:34)
[2019-02-07] MEDS ORDERED: METHADONE HCL 40 MG DISPERSABLE TABLET ONE (04:35)
[2019-02-07] MEDS ORDERED: METHADONE HCL 10 MG TABLET PO SCH (06:00)
[2019-02-07] MEDS: LORazepam 0.5 MG TABLET PO SCH ×4 (06:06→22:10)
[2019-02-07] MEDS: DOCUSATE SODIUM 100 MG CAPSULE (FP) PO SCH ×3 (06:06→22:10)
[2019-02-07] MEDS: GABAPENTIN 300 MG CAPSULE (FP) PO SCH ×3 (06:06→22:10)
[2019-02-07] MEDS: METHADONE 40 MG, METHADONE 30 MG PO SCH (06:07)
[2019-02-07] MEDS: METHOCARBAMOL 500 MG TABLET PO PRN (06:07)
[2019-02-07] MEDS: FAMOTIDINE 20 MG TABLET PO SCH (10:36)
[2019-02-07] MEDS: NICOTINE 14 MG/24 HOURS TOPICAL PATCH TD SCH (10:36)
[2019-02-07] MEDS: NICOTINE POLACRILEX 2 MG GUM BUC PRN (10:36)
[2019-02-07] MEDS: PRENATAL VITAMINS W/ FOLIC ACID TABLET (FP) PO SCH (10:36)
--- NOTE | 2019-02-07 12:28 | PN ---
[facility] CIWA - CIWA Score Nausea/Vomitin-No Nausea/No Vomiting Muscle Tremors: 2 Anxiety: 2 Agitation: 1-Slight > Activity Paroxysmal Sweats: No Perspiration Orientation: 0-Oriented Tacttile Disturbances: 0-None Auditory Disturbances: 0-None Visual Disturbances: 0-None Headache: 0-None Present CIWA-Ar Total Score: 5 [facility] Progress Note (SOAP) Subjective: 44 years old female admitted on 02/04/19 for alcohol and benzo withdrawal sx management treating with ativan detox regimen feeling better today received methadone 70 mg po around 6 am today less tremor mild anxiety Objective: 02/07/19 12:27 Vital Signs Temperature 97.5 F L 02/07/19 09:05 Pulse Rate 73 02/07/19 09:05 Respiratory Rate 18 02/07/19 09:05 Blood Pressure 104/71 02/07/19 09:05 O2 Sat by Pulse Oximetry (%) Laboratory Last Values WBC 5.5 K/mm3 (4.0-10.0) 02/05/19 08:00 RBC 4.00 M/mm3 (3.60-5.2) 02/05/19 08:00 Hgb 13.3 GM/dL (10.7-15.3) 02/05/19 08:00 Hct 39.7 % (32.4-45.2) 02/05/19 08:00 MCV 99.5 fl (80-96) H 02/05/19 08:00 MCH 33.4 pg (25.7-33.7) 02/05/19 08:00 MCHC 33.6 g/dl (32.0-36.0) 02/05/19 08:00 RDW 14.6 % (11.6-15.6) 02/05/19 08:00 Plt Count 189 K/MM3 (134-434) 02/05/19 08:00 MPV 9.1 fl (7.5-11.1) 02/05/19 08:00 Sodium 139 mmol/L (136-145) 02/05/19 08:00 Potassium 3.5 mmol/L (3.5-5.1) 02/06/19 08:15 Chloride 101 mmol/L (98-107) 02/05/19 08:00 Carbon Dioxide 28 mmol/L (21-32) 02/05/19 08:00 Anion Gap 10 MMOL/L (8-16) 02/05/19 08:00 BUN 6.2 mg/dL (7-18) L 02/05/19 08:00 Creatinine 0.7 mg/dL (0.55-1.3) 02/05/19 08:00 Est GFR (CKD-EPI)AfAm 122.13 02/05/19 08:00 Est GFR (CKD-EPI)NonAf 105.37 02/05/19 08:00 Random Glucose 97 mg/dL (74-106) 02/05/19 08:00 Calcium 8.8 mg/dL (8.5-10.1) 02/05/19 08:00 Total Bilirubin 1.0 mg/dL (0.2-1) 02/05/19 08:00 AST 23 U/L (15-37) 02/05/19 08:00 ALT 20 U/L (13-61) 02/05/19 08:00 Alkaline Phosphatase 121 U/L (45-117) H 02/05/19 08:00 Total Protein 6.5 g/dl (6.4-8.2) 02/05/19 08:00 Albumin 3.1 g/dl (3.4-5.0) L 02/05/19 08:00 Urine Color Yellow 02/06/19 10:40 Urine Appearance Turbid 02/06/19 10:40 Urine pH 8.5 (5.0-8.0) H 02/06/19 10:40 Ur Specific [place] 1.024 (1.010-1.035) 02/06/19 10:40 Urine Protein Negative (NEGATIVE) 02/06/19 10:40 Urine Glucose (UA) Negative (NEGATIVE) 02/06/19 10:40 Urine Ketones Negative (NEGATIVE) 02/06/19 10:40 Urine Blood Negative (NEGATIVE) 02/06/19 10:40 Urine Nitrite Negative (NEGATIVE) 02/06/19 10:40 Urine Bilirubin Negative (NEGATIVE) 02/06/19 10:40 Urine Urobilinogen 0.2 mg/dL (0.2-1.0) 02/06/19 10:40 Ur Leukocyte Esterase 1+ (NEGATIVE) H 02/06/19 10:40 Urine WBC (Auto) 58 /hpf (0-5) 02/06/19 10:40 Urine RBC (Auto) 4 /hpf (0-4) 02/06/19 10:40 Urine Casts (Auto) 69 /lpf (0-8) 02/06/19 10:40 U Pathogenic Cast Auto Present /lpf (NEGATIVE) 02/06/19 10:40 U Epithel Cells (Auto) 7.8 /HPF (0-5/HPF) 02/06/19 10:40 Urine Crystals (Auto) Present /hpf 02/06/19 10:40 Urine Bacteria (Auto) >9000 /hpf (NEGATIVE) 02/06/19 10:40 RPR Titer Nonreactive (NONREACTIVE) 02/05/19 08:00 HIV 1&2 Antibody Screen Negative 02/05/19 08:00 HIV P24 Antigen Negative 02/05/19 08:00 lab noted Assessment: 02/07/19 12:27 alcohol and benzo withdrawal Plan: ativan regimen
[2019-02-07] MEDS: MAGNESIUM HYDROX 2400MG/30ML ORAL SUSPENSION 30 ML CUP PO PRN (15:32)
[2019-02-07] MEDS: MELATONIN 5 MG TABLETS PO PRN (22:10)
[2019-02-07] MEDS: THIAMINE HCL 100 MG TABLET (FP) PO SCH (22:10)
[2019-02-08] MEDS ORDERED: METHADONE HCL 40 MG DISPERSABLE TABLET ONE (04:59)
[2019-02-08] MEDS ORDERED: METHADONE HCL 10 MG TABLET ONE (04:59)
[2019-02-08] MEDS ORDERED: LORazepam 0.5 MG TABLET PO ONE (05:00)
[2019-02-08] MEDS: DOCUSATE SODIUM 100 MG CAPSULE (FP) PO SCH (05:45)
[2019-02-08] MEDS: GABAPENTIN 300 MG CAPSULE (FP) PO SCH (05:45)
[2019-02-08] MEDS: METHOCARBAMOL 500 MG TABLET PO PRN (05:45)
[2019-02-08] MEDS: METHADONE 40 MG, METHADONE 30 MG PO SCH (05:45)
[2019-02-08 09:22] VITALS: BP 101/76; PULSE 92; TEMP 97.5
[2019-02-08] MEDS: PRENATAL VITAMINS W/ FOLIC ACID TABLET (FP) PO SCH (10:20)
[2019-02-08] MEDS: FAMOTIDINE 20 MG TABLET PO SCH (10:20)
[2019-02-08] MEDS: NICOTINE 14 MG/24 HOURS TOPICAL PATCH TD SCH (10:20)
--- NOTE | 2019-02-08 14:08 | DS ---
[facility] Detox Discharge Summary Admission Date: 02/04/19 Discharge Date: 02/08/19 - History Present History: Alcohol Dependence, Sedative Dependence Additional Comments: 44 years old female admitted on 02/04/19 for alcohol and benzo withdrawal sx management treated with ativan detox regimen patient tolerated well alert oriented x 3 cardiac s1s2 regular rate rhythm respiratory clear lung bilaterally on auscultation extremities full range of motion - Physical Exam Results Vital Signs: Vital Signs Temperature 97.5 F L 02/08/19 09:21 Pulse Rate 92 H 02/08/19 09:21 Respiratory Rate 18 02/08/19 09:21 Blood Pressure 101/76 02/08/19 09:21 O2 Sat by Pulse Oximetry (%) Pertinent Admission Physical Exam Findings: alcohol and benzo withdrawal Laboratory Last Values WBC 5.5 K/mm3 (4.0-10.0) 02/05/19 08:00 RBC 4.00 M/mm3 (3.60-5.2) 02/05/19 08:00 Hgb 13.3 GM/dL (10.7-15.3) 02/05/19 08:00 Hct 39.7 % (32.4-45.2) 02/05/19 08:00 MCV 99.5 fl (80-96) H 02/05/19 08:00 MCH 33.4 pg (25.7-33.7) 02/05/19 08:00 MCHC 33.6 g/dl (32.0-36.0) 02/05/19 08:00 RDW 14.6 % (11.6-15.6) 02/05/19 08:00 Plt Count 189 K/MM3 (134-434) 02/05/19 08:00 MPV 9.1 fl (7.5-11.1) 02/05/19 08:00 Sodium 139 mmol/L (136-145) 02/05/19 08:00 Potassium 3.5 mmol/L (3.5-5.1) 02/06/19 08:15 Chloride 101 mmol/L (98-107) 02/05/19 08:00 Carbon Dioxide 28 mmol/L (21-32) 02/05/19 08:00 Anion Gap 10 MMOL/L (8-16) 02/05/19 08:00 BUN 6.2 mg/dL (7-18) L 02/05/19 08:00 Creatinine 0.7 mg/dL (0.55-1.3) 02/05/19 08:00 Est GFR (CKD-EPI)AfAm 122.13 02/05/19 08:00 Est GFR (CKD-EPI)NonAf 105.37 02/05/19 08:00 Random Glucose 97 mg/dL (74-106) 02/05/19 08:00 Calcium 8.8 mg/dL (8.5-10.1) 02/05/19 08:00 Total Bilirubin 1.0 mg/dL (0.2-1) 02/05/19 08:00 AST 23 U/L (15-37) 02/05/19 08:00 ALT 20 U/L (13-61) 02/05/19 08:00 Alkaline Phosphatase 121 U/L (45-117) H 02/05/19 08:00 Total Protein 6.5 g/dl (6.4-8.2) 02/05/19 08:00 Albumin 3.1 g/dl (3.4-5.0) L 02/05/19 08:00 Urine Color Yellow 02/06/19 10:40 Urine Appearance Turbid 02/06/19 10:40 Urine pH 8.5 (5.0-8.0) H 02/06/19 10:40 Ur Specific [place] 1.024 (1.010-1.035) 02/06/19 10:40 Urine Protein Negative (NEGATIVE) 02/06/19 10:40 Urine Glucose (UA) Negative (NEGATIVE) 02/06/19 10:40 Urine Ketones Negative (NEGATIVE) 02/06/19 10:40 Urine Blood Negative (NEGATIVE) 02/06/19 10:40 Urine Nitrite Negative (NEGATIVE) 02/06/19 10:40 Urine Bilirubin Negative (NEGATIVE) 02/06/19 10:40 Urine Urobilinogen 0.2 mg/dL (0.2-1.0) 02/06/19 10:40 Ur Leukocyte Esterase 1+ (NEGATIVE) H 02/06/19 10:40 Urine WBC (Auto) 58 /hpf (0-5) 02/06/19 10:40 Urine RBC (Auto) 4 /hpf (0-4) 02/06/19 10:40 Urine Casts (Auto) 69 /lpf (0-8) 02/06/19 10:40 U Pathogenic Cast Auto Present /lpf (NEGATIVE) 02/06/19 10:40 U Epithel Cells (Auto) 7.8 /HPF (0-5/HPF) 02/06/19 10:40 Urine Crystals (Auto) Present /hpf 02/06/19 10:40 Urine Bacteria (Auto) >9000 /hpf (NEGATIVE) 02/06/19 10:40 RPR Titer Nonreactive (NONREACTIVE) 02/05/19 08:00 HIV 1&2 Antibody Screen Negative 02/05/19 08:00 HIV P24 Antigen Negative 02/05/19 08:00 lab noted - Treatment Hospital Course: Detox Protocol Followed, Detoxed Safely, Responded well, Discharged Condition Good, Rehab Referral Accepted Patient has Accepted a Rehab Referral to: [facility] - Medication Discharge Medications: Ambulatory Orders Methadone [Dolophine -] 70 mg PO DAILY 01/11/18 hydrOXYzine PAMOATE [Vistaril -] 50 mg PO TID #90 capsule 01/24/18 Multivitamins [Multivit ([facility] Formulary)] 1 tab PO DAILY 12/10/18 Docusate Sodium [Colace] 100 mg PO TID #14 capsule 12/21/18 Escitalopram Oxalate [Lexapro -] 20 mg PO DAILY #30 tablet 12/21/18 Famotidine 20 mg PO BID #14 tablet 12/21/18 Folic Acid 1 mg PO DAILY #14 tablet 12/21/18 Gabapentin [Neurontin -] 300 mg PO TID #90 capsule 12/21/18 Propranolol HCl 20 mg PO BID #20 tablet 12/21/18 Thiamine HCl [Vitamin B-1] 100 mg PO DAILY #14 tablet 12/21/18 Trazodone HCl 150 mg PO HS #30 tablet 12/21/18 - Diagnosis (1) Alcohol dependence with uncomplicated withdrawal Status: Acute (2) Constipation Status: Chronic Qualifiers: Constipation type: drug induced constipation Qualified Code(s): K59.03 - Drug induced constipation (3) Methadone maintenance therapy patient Status: Chronic (4) Nicotine dependence Status: Acute Qualifiers: Nicotine product type: cigarettes Substance use status: in withdrawal Qualified Code(s): F17.213 - Nicotine dependence, cigarettes, with withdrawal (5) Sedative hypnotic or anxiolytic dependence Status: Acute (6) Substance induced mood disorder Status: Suspected (7) Acid reflux Status: Chronic Qualifiers: Esophagitis presence: without esophagitis Qualified Code(s): K21.9 - Gastro -esophageal reflux disease without esophagitis (8) Cirrhosis of liver Status: Chronic Qualifiers: Hepatic cirrhosis type: alcoholic cirrhosis Ascites presence: without ascites Qualified Code(s): K70.30 - Alcoholic cirrhosis of liver without ascites (9) GERD (gastroesophageal reflux disease) Status: Chronic Qualifiers: Esophagitis presence: without esophagitis Qualified Code(s): K21.9 - Gastro -esophageal reflux disease without esophagitis (10) Hepatitis C Status: Chronic Qualifiers: Viral hepatitis chronicity: carrier Qualified Code(s): B18.2 - Chronic viral hepatitis C (11) Methadone maintenance therapy patient Status: Chronic (12) Nicotine dependence Status: Acute Qualifiers: Nicotine product type: cigarettes Substance use status: in withdrawal Qualified Code(s): F17.213 - Nicotine dependence, cigarettes, with withdrawal - AMA Did Patient Leave Against Medical Advice: No CIWA Score - CIWA Score Nausea/Vomitin-No Nausea/No Vomiting Muscle Tremors: 2 Anxiety: 1-Mildly Anxious Agitation: 0-Normal Activity Paroxysmal Sweats: No Perspiration Orientation: 0-Oriented Tacttile Disturbances: 0-None Auditory Disturbances: 0-None Visual Disturbances: 0-None Headache: 0-None Present CIWA-Ar Total Score: 3
== END 2019-02-08 12:18 | disposition other institution (70) | DRG 773 ==
LOC: YASAS 10:46 → Y3N 14:05
PROVIDERS: ADMIT Allergy & Immunology; ATTEND Allergy & Immunology
PROC: HZ2ZZZZ Detoxification Services for Substance Abuse Treatment (ICD-10-PCS; principal; 2019-02-04)
DX: F10.230 Alcohol dependence with withdrawal, uncomplicated (principal); F10.220 Alcohol dependence with intoxication, uncomplicated; F11.20 Opioid dependence, uncomplicated; F13.20 Sedative, hypnotic or anxiolytic dependence, uncomplicated; F17.213 Nicotine dependence, cigarettes, with withdrawal; F19.24 Other psychoactive substance dependence with psychoactive substance-induced mood disorder; F31.9 Bipolar disorder, unspecified; K21.9 Gastro-esophageal reflux disease without esophagitis; K70.30 Alcoholic cirrhosis of liver without ascites; K59.03 Drug induced constipation; B18.2 Chronic viral hepatitis C; G40.909 Epilepsy, unspecified, not intractable, without status epilepticus; J45.909 Unspecified asthma, uncomplicated; Z87.19 Personal history of other diseases of the digestive system; Z91.5 Personal history of self-harm
CPT/HCPCS: 36415; 80053; 81003; 84132; 85027; 86593; 87389

== ENCOUNTER 2019-02-08 12:03 | Inpatient (IN) | payer OTHER ==
[2019-02-08] MEDS ORDERED: LOPERAMIDE HCL 2 MG CAPSULE PO PRN (14:14)
[2019-02-08] MEDS ORDERED: guaiFENesin 200 MG/10 ML 10 ML UNIT-DOSE CUPS PO PRN (14:14)
[2019-02-08] MEDS ORDERED: P-EPHED 60MG/TRIPROLIDI 2.5MG TABLET PO PRN (14:14)
[2019-02-08] MEDS ORDERED: MENTHOL/PHENOL 1 EACH UD MM PRN (14:14)
[2019-02-08] MEDS ORDERED: MAGNESIUM CITRATE 300 ML BOTTLE PO PRN (14:14)
[2019-02-08] MEDS ORDERED: IBUPROFEN 400 MG TABLET (FP) PO PRN (14:14)
[2019-02-08] MEDS ORDERED: ACETAMINOPHEN 325 MG TABLET (FP) PO PRN (14:14)
[2019-02-08] MEDS ORDERED: MAG HYDROX/AL HYDROX/SIMETH 30 ML UNIT-DOSE CUP PO PRN (14:14)
[2019-02-08] MEDS ORDERED: NICOTINE POLACRILEX 2 MG GUM BUC PRN (14:14)
--- NOTE | 2019-02-08 14:14 | HP ---
[facility] Rehab Assess/Revision - Admission History Admitted to Rehab from: [facility] Date of Admission to Rehab: 02/08/19 - Findings Detox History & Physical reviewed: Yes Concur with findings: Yes Comments/Additional Findings: transferred from detox to rehab admission as per protocol Inpatient Rehab Admission - Rehab Decision to Admit Inpatient rehab admission?: Yes - Initial Determination Are CD services needed?: Yes Free of communicable disease: Yes Not in need of hospitalization: Yes - Rehab Admission Criteria Previous failed treatment: Yes Poor recovery environment: Yes Comorbidities: Yes Lacks judgement: Yes Patient is meeting Inpatient Rehab admission criteria:: Yes
--- NOTE | 2019-02-08 15:47 | PN ---
[facility] Progress Note Note: S:patient admitted to [facility] from detox. Stable. Orders, labs,home medications, problem list, and previous admissions reviewed. Patient known to this provider; there were no safety issues with patient on previous admissions and she participated in the program, was adherent to her medication regimen and treatment plan. O:General: No apparent distress; afebrile, BP: 101/72, HR-96 HEENTM: normocephalic Neck: supple Heart: EKG w/ normal sinus rhythm Lungs: clear, respirations unlabored A/P: substance use rehabilitation, maintain safety.
[2019-02-08] MEDS ORDERED: TUBERCULIN PPD 5 TU/0.1ML VIAL ID ONE (19:25)
[2019-02-08] MEDS: DOCUSATE SODIUM 100 MG CAPSULE (FP) PO SCH (21:30)
[2019-02-08] MEDS: THIAMINE HCL 100 MG TABLET (FP) PO SCH (21:30)
[2019-02-08] MEDS: GABAPENTIN 300 MG CAPSULE (FP) PO SCH (21:30)
[2019-02-08] MEDS: FAMOTIDINE 20 MG TABLET PO SCH (21:31)
[2019-02-08] MEDS ORDERED: MELATONIN 5 MG TABLETS PO PRN (22:00)
[2019-02-09] MEDS: GABAPENTIN 300 MG CAPSULE (FP) PO SCH ×3 (06:16→21:15)
[2019-02-09] MEDS: DOCUSATE SODIUM 100 MG CAPSULE (FP) PO SCH ×3 (06:16→21:15)
[2019-02-09] MEDS ORDERED: METHADONE HCL 10 MG TABLET ONE (08:54)
[2019-02-09] MEDS ORDERED: METHADONE HCL 40 MG DISPERSABLE TABLET ONE (08:55)
[2019-02-09] MEDS: NICOTINE 14 MG/24 HOURS TOPICAL PATCH TD SCH (09:32)
[2019-02-09] MEDS: FAMOTIDINE 20 MG TABLET PO SCH ×2 (09:32→21:15)
[2019-02-09] MEDS: PRENATAL VITAMINS W/ FOLIC ACID TABLET (FP) PO SCH (09:33)
[2019-02-09] MEDS ORDERED: hydrOXYzine PAMOATE 50 MG CAPSULE (FP) PO ONE (09:51)
[2019-02-09] MEDS ORDERED: METHADONE 40 MG, METHADONE 30 MG PO SCH (10:00)
[2019-02-09] MEDS ORDERED: METHADONE HCL 40 MG DISPERSABLE TABLET PO SCH (10:00)
--- NOTE | 2019-02-09 10:05 | PN ---
[facility] Progress Note (SOAP) Subjective: Patient is feeling very anxious. Says she feels "Jumpy" and is crying. Objective: General: Patient is anxious and crying. HEENTM: normocephalic, PERRLA Neck: supple Lungs: clear Heart: s1 s2 ABD: +BS Vital Signs Period Temp Pulse Resp BP Sys/Askew Pulse Ox Last 24 Hr 98.0 F 76 16-16 131/78 02/09/19 10:02 Assessment: anxiety, Withdrawal from benzos, 02/09/19 10:04 02/09/19 10:06 Plan: Vistaril ordered for feelings of anxiety Robaxin for muscle aches Encouraged to take motrin or tylenol with other medications Psychiatric consultation pending. Patient was on Trazadone and home medications include lorazapam
[2019-02-09] MEDS: METHOCARBAMOL 500 MG TABLET PO SCH ×4 (10:09→21:15)
--- NOTE | 2019-02-09 12:00 | EKG ---
Test Reason : Blood Pressure : / mmHG Vent. Rate : 065 BPM Atrial Rate : 065 BPM P-R Int : 158 ms QRS Dur : 074 ms QT Int : 428 ms P-R-T Axes : 049 022 017 degrees QTc Int : 445 ms NORMAL SINUS RHYTHM POSSIBLE LEFT ATRIAL ENLARGEMENT BORDERLINE ECG WHEN COMPARED WITH ECG OF 19-NOV-2018 17:05, QT HAS SHORTENED Confirmed by ESMER PORTILLO MD ([id number]) on 02/09/2019 12:00:00 PM Referred By: Confirmed By:ESMER PORTILLO MD
[2019-02-09] MEDS: THIAMINE HCL 100 MG TABLET (FP) PO SCH (21:15)
[2019-02-09] MEDS: MAGNESIUM HYDROX 2400MG/30ML ORAL SUSPENSION 30 ML CUP PO PRN (22:15)
[2019-02-10] MEDS ORDERED: METHADONE HCL 10 MG TABLET ONE (05:54)
[2019-02-10] MEDS ORDERED: METHADONE HCL 40 MG DISPERSABLE TABLET ONE (05:55)
[2019-02-10] MEDS: METHADONE 40 MG, METHADONE 30 MG PO SCH (06:06)
[2019-02-10] MEDS: GABAPENTIN 300 MG CAPSULE (FP) PO SCH ×3 (06:07→21:36)
[2019-02-10] MEDS: DOCUSATE SODIUM 100 MG CAPSULE (FP) PO SCH ×3 (06:07→21:36)
[2019-02-10] MEDS: NICOTINE 14 MG/24 HOURS TOPICAL PATCH TD SCH (10:00)
[2019-02-10] MEDS: METHOCARBAMOL 500 MG TABLET PO SCH ×4 (10:00→21:36)
[2019-02-10] MEDS: PRENATAL VITAMINS W/ FOLIC ACID TABLET (FP) PO SCH (10:00)
[2019-02-10] MEDS: FAMOTIDINE 20 MG TABLET PO SCH ×2 (10:01→21:36)
[2019-02-10] MEDS: hydrOXYzine PAMOATE 50 MG CAPSULE (FP) PO PRN ×2 (14:15→21:37)
[2019-02-10] MEDS: MAGNESIUM HYDROX 2400MG/30ML ORAL SUSPENSION 30 ML CUP PO PRN (14:20)
[2019-02-10] MEDS: THIAMINE HCL 100 MG TABLET (FP) PO SCH (21:36)
[2019-02-11] MEDS ORDERED: METHADONE HCL 10 MG TABLET ONE (06:05)
[2019-02-11] MEDS ORDERED: METHADONE HCL 40 MG DISPERSABLE TABLET ONE (06:05)
[2019-02-11] MEDS: DOCUSATE SODIUM 100 MG CAPSULE (FP) PO SCH ×3 (06:11→22:07)
[2019-02-11] MEDS: GABAPENTIN 300 MG CAPSULE (FP) PO SCH ×3 (06:11→22:07)
[2019-02-11] MEDS: METHADONE 40 MG, METHADONE 30 MG PO SCH (06:11)
[2019-02-11] MEDS: hydrOXYzine PAMOATE 50 MG CAPSULE (FP) PO PRN ×3 (06:18→22:08)
[2019-02-11] MEDS: METHOCARBAMOL 500 MG TABLET PO SCH ×4 (10:04→22:07)
[2019-02-11] MEDS: PRENATAL VITAMINS W/ FOLIC ACID TABLET (FP) PO SCH (10:04)
[2019-02-11] MEDS: NICOTINE 14 MG/24 HOURS TOPICAL PATCH TD SCH (10:05)
[2019-02-11] MEDS: FAMOTIDINE 20 MG TABLET PO SCH ×2 (10:05→22:07)
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
[2019-02-11] MEDS: THIAMINE HCL 100 MG TABLET (FP) PO SCH (22:07)
[2019-02-11] MEDS: traZODone HCL 50 MG TABLET (FP) PO SCH (22:08)
[2019-02-12] MEDS ORDERED: METHADONE HCL 10 MG TABLET ONE (06:18)
[2019-02-12] MEDS ORDERED: METHADONE HCL 40 MG DISPERSABLE TABLET ONE (06:18)
[2019-02-12] MEDS: hydrOXYzine PAMOATE 50 MG CAPSULE (FP) PO PRN ×2 (06:46→21:36)
[2019-02-12] MEDS: DOCUSATE SODIUM 100 MG CAPSULE (FP) PO SCH ×3 (06:47→21:36)
[2019-02-12] MEDS: GABAPENTIN 300 MG CAPSULE (FP) PO SCH ×3 (06:47→21:36)
[2019-02-12] MEDS: METHADONE 40 MG, METHADONE 30 MG PO SCH (06:47)
[2019-02-12] MEDS: NICOTINE 14 MG/24 HOURS TOPICAL PATCH TD SCH (09:57)
[2019-02-12] MEDS: FAMOTIDINE 20 MG TABLET PO SCH ×2 (09:58→21:36)
[2019-02-12] MEDS: METHOCARBAMOL 500 MG TABLET PO SCH ×4 (09:58→21:36)
[2019-02-12] MEDS: PRENATAL VITAMINS W/ FOLIC ACID TABLET (FP) PO SCH (09:58)
[2019-02-12] MEDS: ESCITALOPRAM OXALATE 10 MG TABLET (FP) PO SCH (09:58)
--- NOTE | 2019-02-12 12:27 | PN ---
[facility] Progress Note Note: Psychiatric nurse practitioner note: Patient scheduled for discharge tomorrow (02/13/19). A 30 day prescription of Lexapro 10mg + Trazodone 50mg HS was electronically sent to [facility], [id number] [id number].
[2019-02-12] MEDS: THIAMINE HCL 100 MG TABLET (FP) PO SCH (21:36)
[2019-02-12] MEDS: traZODone HCL 50 MG TABLET (FP) PO SCH (21:36)
[2019-02-13] MEDS ORDERED: METHADONE HCL 40 MG DISPERSABLE TABLET ONE (06:14)
[2019-02-13] MEDS ORDERED: METHADONE HCL 10 MG TABLET ONE (06:14)
[2019-02-13] MEDS: METHADONE 40 MG, METHADONE 30 MG PO SCH (06:22)
[2019-02-13] MEDS: GABAPENTIN 300 MG CAPSULE (FP) PO SCH (06:23)
[2019-02-13] MEDS: DOCUSATE SODIUM 100 MG CAPSULE (FP) PO SCH (06:23)
[2019-02-13 07:17] VITALS: BP 113/66; PULSE 75; TEMP 98.3
--- NOTE | 2019-02-13 08:36 | DS ---
[facility] Rehab Discharge Summary - [facility] Rehab Discharge Summary Admission Date: 02/08/19 Discharge Date: 02/13/19 - History Present History: Alcohol dependence, Opioid dependence Pertinent Past History: this 44 years old female with alcohol,cocaine dependence,mmtp 70 mgs/da seizure last 5 months ago syncope alcohol related bipolar disorder no suicidal,no homicidal nicotine dependence - Discharge Physical Exam Vital Signs: Vital Signs Temperature 98.3 F 02/13/19 07:16 Pulse Rate 75 02/13/19 07:16 Respiratory Rate 18 02/13/19 07:16 Blood Pressure 113/66 02/13/19 07:16 O2 Sat by Pulse Oximetry (%) Pertinent Admission Physical Exam Findings: General Appearance: No apparent distress HEENTM: Normocephalic, ROGERIO, Respiratory: Lungs Clear, Neck: Supple, Trachea in good position Cardiology: S1, S2 Abdominal: +Bowel Sounds, Non Tender, Soft Musculoskeletal: Full ROM, steady gait Extremities: Yes: Tremors Neurological: cardiac monitor technician II-XII NML intact, - Treatment Discharge Condition: Outpatient referral accepted (Patient will attend program at [facility]. medically stable for discharge.) Hospital Course: patient attended groups, had 1:1 with counselor, was seen by psychiatric services. She had not major medical issues while in detox. - Medication Discharge Medications: Ambulatory Orders Methadone [Dolophine -] 70 mg PO DAILY 01/11/18 hydrOXYzine PAMOATE [Vistaril -] 50 mg PO TID #90 capsule 01/24/18 Multivitamins [Multivit ([facility] Formulary)] 1 tab PO DAILY 12/10/18 Escitalopram Oxalate [Lexapro -] 20 mg PO DAILY #30 tablet 12/21/18 Folic Acid 1 mg PO DAILY #14 tablet 12/21/18 Gabapentin [Neurontin -] 300 mg PO TID #90 capsule 12/21/18 Trazodone HCl 150 mg PO HS #30 tablet 12/21/18 Escitalopram Oxalate [Lexapro -] 10 mg PO DAILY #30 tablet 02/12/19 traZODone HCL [Desyrel -] 50 mg PO HS #30 tablet 02/12/19 Docusate Sodium [Colace] 100 mg PO TID #14 capsule 02/13/19 Famotidine 20 mg PO BID #14 tablet 02/13/19 Propranolol HCl 20 mg PO BID #20 tablet 02/13/19 Thiamine HCl [Vitamin B-1] 100 mg PO DAILY #14 tablet 02/13/19 levETIRAcetam [Keppra -] 500 mg PO BID #14 tablet 02/13/19 - Medication-Assisted Treatment (MAT) Medication-Assisted Treatment (MAT): Yes MAT Follow-up Referral: [facility] - Discharge Instructions Diet, activity, other medical instructions: Diet: as tolerated Activity: as tolerated Other medical instructions: Patient encouraged to attend her aftercare program. - Diagnosis (1) Alcohol dependence Current Visit: Yes Status: Chronic Qualifiers: Substance use status: with intoxication Complication of substance-induced condition: uncomplicated Qualified Code(s): F10.220 - Alcohol dependence with intoxication, uncomplicated (2) Opioid dependence on agonist therapy Current Visit: Yes Status: Chronic - Follow-up Referral Minutes to complete discharge: 20 - AMA Did Patient Leave Against Medical Advice: No
[2019-02-13] MEDS: FAMOTIDINE 20 MG TABLET PO SCH (09:05)
[2019-02-13] MEDS: PRENATAL VITAMINS W/ FOLIC ACID TABLET (FP) PO SCH (09:05)
[2019-02-13] MEDS: NICOTINE 14 MG/24 HOURS TOPICAL PATCH TD SCH (09:05)
[2019-02-13] MEDS: METHOCARBAMOL 500 MG TABLET PO SCH (09:05)
[2019-02-13] MEDS: ESCITALOPRAM OXALATE 10 MG TABLET (FP) PO SCH (09:05)
== END 2019-02-13 10:22 | disposition home or self-care (01) | DRG 773 ==
LOC: YASAS 12:03 → Y3E 12:04
PROVIDERS: ADMIT Allergy & Immunology; ATTEND Allergy & Immunology
PROC: HZ2ZZZZ Detoxification Services for Substance Abuse Treatment (ICD-10-PCS; principal; 2019-02-08)
DX: F10.230 Alcohol dependence with withdrawal, uncomplicated (principal); F11.20 Opioid dependence, uncomplicated; F13.230 Sedative, hypnotic or anxiolytic dependence with withdrawal, uncomplicated; F17.213 Nicotine dependence, cigarettes, with withdrawal; F19.24 Other psychoactive substance dependence with psychoactive substance-induced mood disorder; F41.9 Anxiety disorder, unspecified; G47.09 Other insomnia; K74.60 Unspecified cirrhosis of liver; Z91.14 Patient's other noncompliance with medication regimen; Z86.69 Personal history of other diseases of the nervous system and sense organs; Z62.810 Personal history of physical and sexual abuse in childhood; Z91.410 Personal history of adult physical and sexual abuse
CPT/HCPCS: 93005; 93010